=== PATIENT | female | born 1950 | race Caucasian/White ===

== ENCOUNTER → 2016-09-13 | Outpatient (CLI) | payer MEDICARE, OTHER | LOC: GMAB 10:28 | PROVIDERS: ATTEND Family Medicine | DX: I10 Essential (primary) hypertension (principal); E78.2 Mixed hyperlipidemia ==

== ENCOUNTER → 2017-01-01 | Outpatient (CLI) | payer OTHER ==
--- NOTE | 2017-01-01 15:02 | MRI ---
EXAM DESCRIPTION: Brain w/oContrast CLINICAL HISTORY: DIZZINESS COMPARISON: September 12, 2012 CT head TECHNIQUE: Non contrast MRI of the brain is performed according to our usual protocol including multiplanar multi sequence technique. FINDINGS: MRI the brain demonstrates scattered areas of chronic periventricular and subcortical leukomalacia moderate in severity. There is an old lacunar infarct in the posterior right side of the miki extending down into the brachium pontis on the right with prominent white matter changes on both sides of the miki. There are no areas of acute or subacute ischemia observed. No restricted diffusion is noted. There is no hemorrhage or mass. Flow voids are noted in all major intracranial arteries and dural sinuses. The visualized paranasal sinuses and mastoids are clear. IMPRESSION: 1. Significant small vessel ischemic changes adjacent to the lateral ventricles and in the miki especially on the right side of the miki, no acute process observed. Electronically signed by: Dylan Willis MD 01/01/2017 3:00 PM [facility]
== END | disposition home or self-care (01) ==
LOC: MRI 12:36
PROVIDERS: ATTEND Family Medicine
DX: R42 Dizziness and giddiness (principal)

== ENCOUNTER → 2017-02-06 | Outpatient (CLI) | payer OTHER | END | disposition home or self-care (01) | LOC: GMAB 15:10 | PROVIDERS: ATTEND Family Medicine | DX: R42 Dizziness and giddiness (principal) ==

== ENCOUNTER 2017-02-16 10:31 | Emergency (ER) | payer OTHER ==
[2017-02-16 10:54] VITALS: O2SAT 98
--- NOTE | 2017-02-16 12:05 | RAD ---
EXAM DESCRIPTION: Knee,Right Complete CLINICAL HISTORY: 66 years Female, fall, deformity COMPARISON: None. FINDINGS: There is no evidence of acute fracture or dislocation or destructive bony lesion. The medial tibiofemoral joint space is narrowed. Spurring is noted at the anterior patellar margin. There is diffuse swelling anteriorly and laterally, including prominent oblong soft tissue density at the lateral aspect of the knee, which could represent hematoma, versus other fluid collection or soft tissue mass. Difficult to evaluate for effusion on this examination. Vascular calcifications are identified. IMPRESSION: No evidence of acute osseous injury. Degenerative changes. Soft tissue swelling. Presumed hematoma in the lateral soft tissues. Electronically signed by: Duran Jolley 02/16/2017 12:03 PM [facility]
--- NOTE | 2017-02-16 12:09 | RAD ---
EXAM DESCRIPTION: Wrist,Left 3 Views CLINICAL HISTORY: 66 years Female, fall pain and swelling COMPARISON: None. FINDINGS: There is no evidence of acute fracture or dislocation or destructive bony lesion. Slight hypertrophic bony change is noted in the distal radius. Joint spaces appear fairly well preserved as visualized except for apparent slight narrowing between the scaphoid and the trapezium. Soft tissues appear grossly unremarkable. IMPRESSION: No evidence of acute osseous injury. Electronically signed by: Duran Jolley 02/16/2017 12:08 PM [facility]
--- NOTE | 2017-02-16 12:13 | RAD ---
EXAM DESCRIPTION: Knee,Left Complete CLINICAL HISTORY: 66 years Female, fall pain and swelling COMPARISON: None. FINDINGS: There is no evidence of acute fracture or dislocation or destructive bony lesion. The tibiofemoral joint space appears maintained. There is minimal spurring at the posterior patellar margin. Soft tissue swelling and thickening is noted anteriorly. Joint effusion may be present. There are vascular calcifications. IMPRESSION: No evidence of acute osseous injury. Anterior soft tissue swelling. Possible joint effusion. Electronically signed by: Duran Jolley 02/16/2017 12:12 PM [facility]
--- NOTE | 2017-02-16 12:29 | CT ---
PROCEDURE: Cervical Spine HISTORY: fall Indication: Same as above Comparison: None Technique: CT of the cervical spine was done without intravenous contrast, including axial, sagittal and coronal reconstructions. This exam was performed according to our departmental dose-optimization program, which includes automated exposure control, adjustment of the mA and/or KV according to the patient's size and/or use of iterative reconstruction technique. FINDINGS: There is no CT evidence of acute cervical spinal fractures or dislocations. The craniovertebral junction appears unremarkable. There is also evidence of mild to moderate amount of degenerative change, including osteophyte formation, reduction in the intervertebral disc spaces, endplate degenerative changes and facet arthropathy seen at few levels. There is limited evaluation for acute or chronic intervertebral disc herniations or protrusions given the limitation of lack of intrathecal contrast. The prevertebral and the paravertebral soft tissues appear unremarkable. There is no gross evidence of epidural hematoma or paraspinal soft tissue fluid collections. The remainder of the visualized surrounding subcutaneous soft tissues and muscle structures are grossly unremarkable. The visualized airway appears unremarkable. The visualized lung apices do not show any acute findings . The sagittal reconstructed images demonstrate normal alignment The coronal reconstructed images demonstrate normal alignment. IMPRESSION: Negative for acute cervical spine bony trauma. Electronically signed by: Rancho Rodriguez MD 02/16/2017 12:28 PM [facility] Workstation: [id number]
--- NOTE | 2017-02-16 12:30 | CT ---
PROCEDURE: Head HISTORY: fall Indication: Same as above Comparison: None Technique: CT of the head was done without intravenous contrast was done in the orthogonal planes. This exam was performed according to our departmental dose-optimization program, which includes automated exposure control, adjustment of the mA and/or KV according to the patient's size and/or use of iterative reconstruction technique. FINDINGS: There is no intracranial hemorrhage, midline shift mass effect or acute focal infarct. There is prominence of the sylvian fissures and the cortical sulci reflecting age related volume loss. There is periventricular and deep white matter low attenuation, most likely related to small vessel white matter ischemic disease. Intracranial vascular calcifications are seen. If clinical concern exists regarding an acute ischemic/vascular pathology being responsible for patient's symptomatology, an MRI of the brain is more sensitive than the current study, in ruling out such a possibility. There is good ibrahim/white matter differentiation. The ventricular system is normal. The mastoid air cells are unremarkable . The paranasal sinuses are unremarkable . There is no visualization of acute fractures involving the calvarium or the skull base. IMPRESSION: There is no acute intracranial abnormality. Age related and chronic involutional changes are seen. Electronically signed by: Rancho Rodriguez MD 02/16/2017 12:29 PM [facility] Workstation: [id number]
--- NOTE | 2017-02-16 12:42 | ED.PDOC ---
History of Present Illness - General Chief Complaint: Trauma Stated Complaint: Fell - hit forehead/face and R knee Time Seen by Provider: 02/16/17 10:35 Source: patient Exam Limitations: no limitations - History of Present Illness Initial Comments: The patient is 66-year-old female but tripped and fell today in her own house. She sustained a large bruise surrounding her right knee. She is having some difficulty walking on it and pain. She also caught herself with her left wrist and is having some mild medial left wrist discomfort. No obvious deformity there. She is neurovascularly at her baseline. Additionally she did hit her head and has a small frontal hematoma. She is alert and oriented. No real neck pain but she has some mild discomfort just at the base of her cervical spine laterally to the right. Again she is neurologically intact. No loss of consciousness. No significant laceration. Timing/Duration: 1 hour Severity: moderate Improving Factors: immobilization Worsening Factors: movement Associated Symptoms: denies symptoms Allergies/Adverse Reactions: Allergies NO KNOWN ALLERGY Allergy (Verified 02/16/17 10:48) Home Medications: Ambulatory Orders Atorvastatin Calcium [Lipitor] 20 mg PO BEDTIME 06/20/15 Buspirone HCl 15 mg PO BID 06/20/15 Citracal + D3 Maximum 315-250 mg-Unit 1 dose PO DAILY 06/20/15 Clopidogrel Bisulfate [Plavix] 75 mg PO DAILY 06/20/15 Cyanocobalamin Inj [Vitamin B-12 Inj] 1,000 mcg IM MONTHLY 06/20/15 Duloxetine HCl [Cymbalta] 60 mg PO BID 06/20/15 Empagliflozin-Linagliptin [Glyxambi 10-5 mg] 1 tab PO DAILY 06/20/15 Fosinopril Sodium 40 mg PO DAILY 06/20/15 Furosemide 40 mg PO DAILY 06/20/15 Gabapentin 300 mg PO TID 06/20/15 HYDROcodone 7.5MG/APAP 325MG [[place] 7.5/325] 1 ea PO QID 06/20/15 Insulin 70/30 40 units SC DAILY 06/20/15 Insulin Detemir [Levemir] 0 unit SUBCU DAILY 06/20/15 Nitroglycerin [Nitrostat] 0.4 mg SL PRN PRN 06/20/15 Potassium Chloride [Potassium Chloride ER] 10 meq PO DAILY 04/25/16 Vwrumnmapyfun-Sghf-Jjlnbvuili [Fioricet] 1 ea PO Q8H PRN #21 tab 02/16/17 Review of Systems - Review of Systems Constitutional: States: no symptoms reported EENTM: States: no symptoms reported Respiratory: States: no symptoms reported Cardiology: States: no symptoms reported Gastrointestinal/Abdominal: States: no symptoms reported Genitourinary: States: no symptoms reported Musculoskeletal: States: see HPI Skin: States: see HPI Neurological: States: headache - mild Endocrine: States: no symptoms reported All other Systems: No Change from Baseline Past Medical History (General) - Patient Medical History Hx Stroke: Yes - x 2 Hx Cardiac Disorders: Yes - s/p stent Hx Hypertension: Yes Hx Diabetes: Yes Hx Gastroesophageal Reflux: Yes Hx MRSA: Yes - Leg 2007; Nose 2010 MRSA Source:: Wound - Vaccination History Hx Influenza Vaccination: No Hx Pneumococcal Vaccination: Yes - 2015 - Social History Hx Tobacco Use: No Family Medical History - Family History Mother Family History: No Known Living Status: Physical Exam - Physical Exam General Appearance: Alert, Comfortable, No apparent distress Eye Exam: bilateral normal Ears, Nose, Throat: hearing grossly normal, normal ENT inspection, normal pharynx Neck: full range of motion, supple, other - the mild discomfort palpation at the base of the neck on the right. No obvious deformity. There is some muscle spasm. No step-offs. Full range of motion of the cervical spine is preserved. Respiratory: lungs clear, normal breath sounds, no respiratory distress, no accessory muscle use Cardiovascular/Chest: normal peripheral pulses, no edema, other - egular rate Peripheral Pulses: radial,right: 2+, radial,left: 2+, dorsalis pedis,right: 2+, dorsalis pedis,left: 2+ Gastrointestinal/Abdominal: non tender, soft Rectal Exam: deferred Back Exam: no CVA tenderness, no vertebral tenderness Extremity: no pedal edema, normal capillary refill, other - significant swelling of the right knee with associated bruising and a mild abrasion are noted. Range of motion is limited due to pain. She does appear to be neurovascularly intact. Areas history of present illness for the details. Neurologic: folding machine tender II-XII nml as tested, no motor/sensory deficits, alert, normal mood/affect, oriented x 3 Skin Exam: normal color - ith the exception of the abrasion in the mild bruising. She also has a mild bruise to her right forehead. Comments: Vital Signs - 24 hr 02/16/17 10:48 Temperature 98.8 F Pulse Rate [ 66 Left Radial] Respiratory 18 Rate Blood Pressure 182/62 [Left Arm] O2 Sat by Pulse 98 Oximetry Progress - Progress Progress: 02/16/17 12:45 the patient's 66-year-old female presenting to the emergency room after a fall at home. She has sustained a significant hematoma surrounding her right knee. No evidence of fracture was found in her knees or the left wrist on xray. CT scan of the head and cervical spine are also reassuring. The patient is going to be placed in a knee immobilizer for a couple of weeks. She will need to be reevaluated once the swelling has gone down on her knee to see if she has significant ligamentous damage there. She obviously needs to ambulate carefully to prevent further falls. ER warnings were given for any significant worsening. She'll be written for Fioricet for as needed use for pain control. In a couple of days she can start taking Motrin as well for pain control. - Results/Orders Results/Orders: x-ray of the right and left knee show no evidence of any fracture or dislocation. She does have degenerative joint changes. X-ray of the left wrist shows no evidence of any fracture or dislocation. CT scan of the cervical spine shows no evidence of any acute pathology. She does have chronic degenerative changes. CT scan of the head showed no evidence of intracranial hemorrhage. No skull fracture. No hydrocephalus. No mass effect. Departure - Departure Clinical Impression: Fall at home Qualifiers: Encounter type: initial encounter Qualified Code(s): W19.XXXA - Unspecified fall, initial encounter; Y92.099 - Unspecified place in other non-institutional residence as the place of occurrence of the external cause Knee sprain Qualifiers: Encounter type: initial encounter Involved ligament of knee: unspecified ligament Laterality: right Qualified Code(s): S83.91XA - Sprain of unspecified site of right knee, initial encounter Disposition: Discharge to Home or Self Care Condition: Fair Departure Forms: ED Discharge - Pt. Copy, Patient Portal Self Enrollment Diet: regular diet Activity: no pushing/pulling with affected limb Referrals: Quintin Burris MD [Primary Care Provider] - 1-2 Weeks Prescriptions: Yefnibzrecukh-Lccm-Ityyybtrew [Fioricet] 1 ea PO Q8H PRN #21 tab PRN Reason: Pain Home Medications: Ambulatory Orders Atorvastatin Calcium [Lipitor] 20 mg PO BEDTIME 06/20/15 Buspirone HCl 15 mg PO BID 06/20/15 Citracal + D3 Maximum 315-250 mg-Unit 1 dose PO DAILY 06/20/15 Clopidogrel Bisulfate [Plavix] 75 mg PO DAILY 06/20/15 Cyanocobalamin Inj [Vitamin B-12 Inj] 1,000 mcg IM MONTHLY 06/20/15 Duloxetine HCl [Cymbalta] 60 mg PO BID 06/20/15 Empagliflozin-Linagliptin [Glyxambi 10-5 mg] 1 tab PO DAILY 06/20/15 Fosinopril Sodium 40 mg PO DAILY 06/20/15 Furosemide 40 mg PO DAILY 06/20/15 Gabapentin 300 mg PO TID 06/20/15 HYDROcodone 7.5MG/APAP 325MG [[place] 7.5/325] 1 ea PO QID 06/20/15 Insulin 70/30 40 units SC DAILY 06/20/15 Insulin Detemir [Levemir] 0 unit SUBCU DAILY 06/20/15 Nitroglycerin [Nitrostat] 0.4 mg SL PRN PRN 06/20/15 Potassium Chloride [Potassium Chloride ER] 10 meq PO DAILY 06/20/15 Gqqjbvqoxijpr-Gzmv-Modpdlcawb [Fioricet] 1 ea PO Q8H PRN #21 tab 02/16/17 Additional Instructions: the patient's 66-year-old female presenting to the emergency room after a fall at home. She has sustained a significant hematoma surrounding her right knee. No evidence of fracture was found in her knees or the left wrist on xray. CT scan of the head and cervical spine are also reassuring. The patient is going to be placed in a knee immobilizer for a couple of weeks. She will need to be reevaluated once the swelling has gone down on her knee to see if she has significant ligamentous damage there. She obviously needs to ambulate carefully to prevent further falls. ER warnings were given for any significant worsening. She'll be written for Fioricet for as needed use for pain control. In a couple of days she can start taking Motrin as well for pain control.
[2017-02-17 19:02] VITALS: BP 178/82; TEMP 98
== END 2017-02-16 12:50 | disposition home or self-care (01) ==
LOC: ER 10:31
DX: S83.91XA Sprain of unspecified site of right knee, initial encounter (principal); S80.811A Abrasion, right lower leg, initial encounter; S00.93XA Contusion of unspecified part of head, initial encounter; M54.2 Cervicalgia; M25.532 Pain in left wrist; E11.9 Type 2 diabetes mellitus without complications; I10 Essential (primary) hypertension; K21.9 Gastro-esophageal reflux disease without esophagitis; Z79.4 Long term (current) use of insulin; Z79.899 Other long term (current) drug therapy; W01.0XXA Fall on same level from slipping, tripping and stumbling without subsequent striking against object, initial encounter; Y92.009 Unspecified place in unspecified non-institutional (private) residence as the place of occurrence of the external cause

== ENCOUNTER 2017-03-08 10:48 | Emergency (ER) | payer OTHER ==
[2017-03-08 11:05] VITALS: TEMP 97.7
[2017-03-08] MEDS ORDERED: SODIUM CHLORIDE 0.9% 100ML 100 ML IVPB ONE (11:22)
[2017-03-08] MEDS ORDERED: diltiaZEM DRIP 125 MG/25 ML VIAL IVPB ONE (11:22)
--- NOTE | 2017-03-08 11:31 | RAD ---
EXAM DESCRIPTION: Chest,1 View CLINICAL HISTORY: chest pain COMPARISON: June 20, 2015 IMPRESSION: Single AP portable upright view of the chest shows cardiac silhouette and pulmonary vasculature to be within normal limits. Lungs are normally aerated and clear. No obvious pleural effusion or pneumothorax is seen. Moderate disc degenerative changes of the spine are seen. Electronically signed by: Darvin Bajwa MD 03/08/2017 11:30 AM [facility]
[2017-03-08] MEDS: diltiaZEM DRIP 125 MG in SODIUM CHLORIDE 0.9% 100ML 100 ML IVPB SCH (11:33)
--- NOTE | 2017-03-08 12:48 | ED.PDOC ---
History of Present Illness - General Chief Complaint: Cardiovascular Problem Stated Complaint: new onset atrial fib Time Seen by Provider: 03/08/17 11:11 Source: patient Exam Limitations: no limitations - History of Present Illness Initial Comments: THIS PATIENT IS SEEN AT HER PCP OFFICE FOR A ROUTINE VISIT AND WAS FOUND TO BE IN ATRIAL FIBRILLATION WITH RVR, EVIDENTLY NEW ONSET. SHE DENIES ANY CHEST PAIN BUT HAS A HX OF KNOWN CAD, PAD AND HTN. Timing/Duration: 1 week Severity/Quality: mild Prior Chest Pain/Cardiac Workup: angina, cardiac cath Improving Factors: nothing Worsening Factors: nothing Associated Symptoms: denies symptoms Allergies/Adverse Reactions: Allergies NO KNOWN ALLERGY Allergy (Verified 02/16/17 10:48) Home Medications: Ambulatory Orders Atorvastatin Calcium [Lipitor] 20 mg PO BEDTIME 06/20/15 Buspirone HCl 15 mg PO BID 06/20/15 Citracal + D3 Maximum 315-250 mg-Unit 1 dose PO DAILY 06/20/15 Clopidogrel Bisulfate [Plavix] 75 mg PO DAILY 06/20/15 Cyanocobalamin Inj [Vitamin B-12 Inj] 1,000 mcg IM MONTHLY 06/20/15 Duloxetine HCl [Cymbalta] 60 mg PO BID 06/20/15 Empagliflozin-Linagliptin [Glyxambi 10-5 mg] 1 tab PO DAILY 06/20/15 Fosinopril Sodium 40 mg PO DAILY 06/20/15 Furosemide 40 mg PO DAILY 06/20/15 Gabapentin 300 mg PO TID 06/20/15 HYDROcodone 7.5MG/APAP 325MG [[place] 7.5/325] 1 ea PO QID 06/20/15 Insulin 70/30 40 units SC DAILY 06/20/15 Insulin Detemir [Levemir] 0 unit SUBCU DAILY 06/20/15 Nitroglycerin [Nitrostat] 0.4 mg SL PRN PRN 06/20/15 Potassium Chloride [Potassium Chloride ER] 10 meq PO DAILY 06/20/15 Rpyqmjanadxev-Tvyx-Ybycwjxavk [Fioricet] 1 ea PO Q8H PRN #21 tab 02/16/17 Review of Systems - Review of Systems Constitutional: States: no symptoms reported EENTM: States: no symptoms reported Respiratory: States: no symptoms reported Cardiology: States: no symptoms reported Gastrointestinal/Abdominal: States: no symptoms reported Genitourinary: States: no symptoms reported Musculoskeletal: States: no symptoms reported Skin: States: no symptoms reported Neurological: States: no symptoms reported Endocrine: States: no symptoms reported Hematologic/Lymphatic: States: no symptoms reported Past Medical History (General) - Patient Medical History Hx Stroke: Yes - x 2 Hx Cardiac Disorders: Yes - s/p stent Hx Congestive Heart Failure: No Hx Hypertension: Yes Hx Diabetes: Yes Hx Gastroesophageal Reflux: Yes Hx MRSA: Yes - Leg 2007; Nose 2010 MRSA Source:: Wound Surgical History: appendectomy, cholecystectomy, Hysterectomy - Vaccination History Hx Influenza Vaccination: No Hx Pneumococcal Vaccination: Yes - Social History Hx Tobacco Use: No Family Medical History - Family History Mother Family History: No Known Living Status: Physical Exam - Physical Exam General Appearance: Alert, Anxious, No apparent distress Eyes, Ears, Nose, Throat Exam: PERRL/EOMI, normal ENT inspection Neck: non-tender, full range of motion, supple, normal inspection Respiratory: chest non-tender, lungs clear, normal breath sounds, no respiratory distress, no accessory muscle use Cardiovascular/Chest: normal peripheral pulses, tachycardia, irregularly irregular Peripheral Pulses: radial,right: 2+, radial,left: 2+ Gastrointestinal/Abdominal: normal bowel sounds, non tender, soft, no organomegaly, no pulsatile mass Rectal Exam: deferred Extremity: normal range of motion, non-tender, normal inspection, no pedal edema Neurologic: alert, normal mood/affect, oriented x 3 Skin Exam: normal color Lymphatic: no adenopathy Progress - Progress Progress: 03/08/17 14:02 RESPONDED WELL TO CARDIZEM. THE PATIENT WANTS TO STAY IN [place]. I HAVE CONSULTED WITH DR. LEVIN AND HE HAS VISTED WITH THE PATIENT. THERE ARE NO BEDS IN THE HOSPITAL. WILL ATTEMPT TO DISCHARGE HOME. 03/08/17 14:04 EKG: HR OF 157, QRS OF 128, QTC OF 488 AND AXIS OF 74 DEGREES. THE TRACING IS COMPARED TO ONE FROM THE CLINIC DONE EARLIER TODAY. WHEN COMPARED THE TRACING WAS ON AF WITH RVR ATR A RATE OF 128, NO SIGNIFICANT CHANGES NOTED. - Results/Orders Results/Orders: she has been consulted by dr. levin and will be discharged home. PRESCRIPTIONS FOR ELIQUIS AND METOPROLOL HAVE E PRESCRIBED TO [facility]. SHE SHOULD PICK THEM UP AND START WITH THOSE MEDS. Departure - Departure Clinical Impression: Atrial fibrillation with RVR CAD (coronary artery disease) Qualifiers: Coronary Disease-Associated Artery/Lesion type: [place] artery [place] vs. transplanted heart: [place] heart Associated angina: with stable angina Qualified Code(s): I25.118 - Atherosclerotic heart disease of [place] coronary artery with other forms of angina pectoris Time of Disposition: 16:16 Disposition: Discharge to Home or Self Care Condition: Fair Departure Forms: ED Discharge - Pt. Copy, Patient Portal Self Enrollment Instructions: DI for Chest Pain Diet: resume usual diet Activity: increase activity as tolerated Referrals: Quintin Burris MD [Primary Care Provider] - 1-2 Weeks Home Medications: Ambulatory Orders Atorvastatin Calcium [Lipitor] 20 mg PO BEDTIME 06/20/15 Buspirone HCl 15 mg PO BID 06/20/15 Citracal + D3 Maximum 315-250 mg-Unit 1 dose PO DAILY 06/20/15 Clopidogrel Bisulfate [Plavix] 75 mg PO DAILY 06/20/15 Cyanocobalamin Inj [Vitamin B-12 Inj] 1,000 mcg IM MONTHLY 06/20/15 Duloxetine HCl [Cymbalta] 60 mg PO BID 06/20/15 Empagliflozin-Linagliptin [Glyxambi 10-5 mg] 1 tab PO DAILY 06/20/15 Fosinopril Sodium 40 mg PO DAILY 06/20/15 Furosemide 40 mg PO DAILY 06/20/15 Gabapentin 300 mg PO TID 06/20/15 HYDROcodone 7.5MG/APAP 325MG [[place] 7.5/325] 1 ea PO QID 06/20/15 Insulin 70/30 40 units SC DAILY 06/20/15 Insulin Detemir [Levemir] 0 unit SUBCU DAILY 06/20/15 Nitroglycerin [Nitrostat] 0.4 mg SL PRN PRN 06/20/15 Potassium Chloride [Potassium Chloride ER] 10 meq PO DAILY 06/20/15 Btvbyjcalbuta-Bicp-Xvkvbbdmkf [Fioricet] 1 ea PO Q8H PRN #21 tab 02/16/17 Critical Care Note - Critical Care Note Total Time (mins): 35 Comments: CRITICAL CARE: CRITICAL EVENT: PALPITATIONS CRITICAL FINDINGS: NEW ONSET ATRIAL FIB WITH RVR CRITICAL ACTIONS: IV CARDIZEM, CARDIZEM DRIP, IV DIGOXIN, CARDIOLOGY CONSULTATION CRITICAL TIME: 35 MINUTES SYSTEMS AT RISK: CARDIOVASCULAR, NEUROLOGICAL
[2017-03-08] MEDS ORDERED: DIGOXIN INJ 0.5 MG/2 ML AMP IV ONE (13:15)
[2017-03-08] MEDS: DIGOXIN INJ 0.5 MG/2 ML AMP IV ONE (13:29)
[2017-03-08 15:10] VITALS: O2SAT 93
[2017-03-08 16:58] VITALS: BP 177/88
== END 2017-03-08 16:57 | disposition home or self-care (01) ==
LOC: ER 10:48
DX: I48.91 Unspecified atrial fibrillation (principal); I25.118 Atherosclerotic heart disease of native coronary artery with other forms of angina pectoris; I10 Essential (primary) hypertension; E11.9 Type 2 diabetes mellitus without complications; K21.9 Gastro-esophageal reflux disease without esophagitis; Z98.61 Coronary angioplasty status; Z79.4 Long term (current) use of insulin; Z79.02 Long term (current) use of antithrombotics/antiplatelets
CPT/HCPCS: 36415; 71045; 80053; 83880; 84484; 85025; 93005; J1160; J7050

== ENCOUNTER → 2017-05-29 | Outpatient (CLI) | payer OTHER ==
--- NOTE | 2017-05-29 16:38 | MRI ---
MRI pelvis without contrast INDICATION: Chronic pain syndrome TECHNIQUE: Noncontrast MR imaging pelvis FINDINGS: Degenerative scoliosis of the lumbar spine partially imaged. Advanced degenerative disc disease asymmetric left-sided L4-5 with marginal osteophytes and vacuum phenomenon within the disc. Prominent degenerative facet disease lower lumbar region and active endplate edema at L4-5 most likely degenerative/mechanical There is an interstitial partial tear involving the gluteus minimus tendon with right hip with background tendinosis. No complete detachment or retraction. Gluteus medius tendon is intact other than mild tendinosis. There is degenerative hypertrophy of the superior lateral acetabulum right hip. Mild background osteoarthrosis. This hypertrophy may produce pincer-type impingement of the hip. No osteonecrosis or fracture. There is artifact along the proximal attachment of the right hamstring tendons. There is tendinosis and mild adjacent edema. No rupture. No pronounced narrowing of the ischiofemoral interval right hip. Minimal right greater trochanteric bursitis. 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 Mild right greater trochanteric bursal edema Degenerative scoliosis lumbar spine with degenerative disc disease and prominent facet arthrosis most severe at L4-5 Electronically signed by: Florentin Lynn MD 05/29/2017 4:37 PM CDT
== END | disposition home or self-care (01) ==
LOC: MRI 14:36
PROVIDERS: ATTEND Orthopaedic Surgery
DX: M25.851 Other specified joint disorders, right hip (principal); S73.191A Other sprain of right hip, initial encounter; X58.XXXA Exposure to other specified factors, initial encounter; Y93.9 Activity, unspecified

== ENCOUNTER → 2017-06-25 | Outpatient (CLI) | payer OTHER ==
--- NOTE | 2017-06-27 09:26 | MAM ---
EXAM DESCRIPTION: 3D Screening BILATERAL : Digital Mammography. CLINICAL HISTORY: 66 years Female SCREENING . No complaints. No family history breast cancer. Hysterectomy. No HRT. Cyst aspiration and benign right breast biopsy. COMPARISON: 2-D digital screening bilateral study 04/23/2012.. No prior reports available. TECHNIQUE: Bilateral CC and MLO projection full-field images, 3-D tomosynthesis digital mammographic technique. Also bilateral synthesized CC/ MLO full-field images. CAD not utilized. FINDINGS: The breast parenchymal density pattern is: Scattered areas of fibroglandular density. No skin thickening or nipple retraction bilateral solitary microcalcifications. Bilateral axillary lymph nodes. More diffuse calcifications in the left breast. No focal, stellate mass or density, focal asymmetry , and no suspicious microcalcifications bilaterally. Stable mammograms compared to prior study, taking into account differences in mammographic technique IMPRESSION: BI-RADS CATEGORY: 2 - BENIGN FINDINGS. FOLLOW UP: Routine digital bilateral screening, one year interval from June 2017. Written communication explaining the IMPRESSION and follow-up, will be mailed to the patient and referring health care provider. According to the [employer], yearly mammograms are recommended starting at age 40 and continuing as long as a woman is in good health. Any breast change noted on a breast self-exam should be reported promptly to the patient's healthcare provider. Breast MRI is recommended for women with an approximately 20-25% or greater lifetime risk of breast cancer, including women with a strong family history of breast or ovarian cancer and women who have been treated for Hodgkin's disease. A negative mammographic report should not delay tissue diagnosis in patients with significant clinical history or physical findings. Extremely dense breast tissue limits the sensitivity of digital mammography. Electronically signed by: Niels Nicolas MD 06/27/2017 9:24 AM CDT
== END ==
LOC: MAMMO 13:49
PROVIDERS: ATTEND Family Medicine
DX: Z12.31 Encounter for screening mammogram for malignant neoplasm of breast (principal)

== ENCOUNTER → 2017-12-02 | Outpatient (CLI) | payer OTHER | LOC: GMAE 11:01 | PROVIDERS: ATTEND Family Medicine | DX: D50.8 Other iron deficiency anemias (principal); E53.8 Deficiency of other specified B group vitamins; E11.65 Type 2 diabetes mellitus with hyperglycemia; R94.6 Abnormal results of thyroid function studies; E78.2 Mixed hyperlipidemia; I10 Essential (primary) hypertension ==

== ENCOUNTER → 2017-12-05 | Outpatient (CLI) | payer OTHER ==
--- NOTE | 2017-12-06 05:36 | US ---
THYROID ULTRASOUND CLINICAL INFORMATION: Abnormal thyroid findings TECHNIQUE: Sonographic survey of the thyroid gland was performed and medical field representative images recorded. COMPARISON: None FINDINGS: Thyroid size: Right lobe measures 5.5 x 1.9 x 2.5 cm. Left lobe measures 4.7 x 1.4 x 2.1 cm. Isthmus measures 0.3 cm. Texture: Relatively homogenous. Estimated total number of nodules >/=1 cm: 0 Number of spongiform nodules >/=2 cm not described below (TR1): 0 Number of mixed cystic and solid nodules >/=1.5 cm not described below (TR2): 0 Nodule #: #: 1: Maximum size: 0.8 cm; All dimensions 0.8 x 0.5 x 0.6 cm Location: right; mid Composition: solid/almost completely solid (2) Echogenicity: hypoechoic (2) Shape: not [id number] (0) Margins: smooth (0) Echogenic foci: none (0) ACR TI-RADS total points: 4. ACR TI-RADS risk category: TR4 (4-6 points) ACR TI-RADS recommendation: No further follow-up IMPRESSION: 1. Subcentimeter nodule in the right lobe of the thyroid gland. No further follow-up imaging recommended. ACR TI-RADS recommendations: TR5 (>/=7 points) - FNA if >/=1 cm, follow-up if 0.5 - 0.9 cm every year for 5 years TR4 (4-6 points) - FNA if >/=1.5 cm, follow-up if 1 - 1.4 cm in 1, 2, 3 and 5 years TR3 (3 points) - FNA if >/=2.5 cm, follow -up if 1.5 - 2.4 cm in 1, 3 and 5 years TR2 (2 points) and TR1 (0 points) - No FNA or follow-up * ACR TI-RADS recommends that no more than two nodules with the highest ACR TI-RADS total point should be biopsied and no more than four nodules should be followed. Electronically signed by: Imtiaz Conroy MD 12/06/2017 5:34 AM CDT
== END ==
LOC: US 10:52
PROVIDERS: ATTEND Family Medicine
DX: R94.6 Abnormal results of thyroid function studies (principal); E04.1 Nontoxic single thyroid nodule

== ENCOUNTER → 2018-01-10 | Outpatient (CLI) | payer OTHER ==
--- NOTE | 2018-01-13 07:18 | RAD ---
EXAM DESCRIPTION: Pelvis CLINICAL HISTORY: 67 years Female, HIP PN COMPARISON: None. FINDINGS: Single AP view of the pelvis shows no acute fracture or malalignment. Vascular calcifications are noted. The hip joint spaces are fairly well-maintained with mild degenerative calcifications arising from the acetabular margins bilaterally. Degenerative changes are also noted in the lower lumbar spine. IMPRESSION: Mild degenerative changes in both hips with additional degenerative changes in the lower lumbar spine. No acute hip abnormality. Vascular calcifications. Electronically signed by: Modesto Contreras MD 01/13/2018 7:16 AM [facility]
--- NOTE | 2018-01-13 07:19 | RAD ---
EXAM DESCRIPTION: Hip,Right 2 Views CLINICAL HISTORY: 67 years Female, HIP PN COMPARISON: None. FINDINGS: Two views of the right hip show no acute fracture or malalignment. Degenerative calcifications arise in the posterior margin of the right acetabulum. Mild to these hepatic calcifications arise in the greater trochanter. Vascular calcifications are noted. No evidence of avascular necrosis or other focal bone lesion. There is joint space narrowing with adjacent sclerosis in the right sacroiliac joint, likely degenerative. Additional degenerative changes are present in the lower lumbar spine. IMPRESSION: Mild degenerative changes of the right hip without acute right hip abnormality. Additional degenerative changes in the lower lumbar spine and right sacroiliac joint. Atherosclerotic vascular disease. Electronically signed by: Modesto Contreras MD 01/13/2018 7:18 AM [facility]
== END ==
LOC: RAD 01-09 02:45
PROVIDERS: ATTEND Orthopaedic Surgery
DX: M25.551 Pain in right hip (principal); M12.851 Other specific arthropathies, not elsewhere classified, right hip; M12.852 Other specific arthropathies, not elsewhere classified, left hip; M51.36 Other intervertebral disc degeneration, lumbar region; I70.8 Atherosclerosis of other arteries

== ENCOUNTER → 2018-01-20 | Outpatient (CLI) | payer OTHER ==
--- NOTE | 2018-01-20 13:47 | MRI ---
MRI right hip without contrast INDICATION: Hip pain bursitis status post fall one month ago TECHNIQUE: Noncontrast MR imaging right hip FINDINGS: There is trace bilateral greater trochanteric bursal edema. No fracture or osteonecrosis. Degenerative disease L4-5 and L5-S1 incidentally noted. No hamstring avulsion. Mild undersurface degenerative fraying anterior superior labrum right hip. No avulsion of the gluteal tendons. There is ossification which may be connected to the enthesophyte formation at the right greater trochanter coronal series 301 image 8. There is no pronounced edema to suggest an active a avulsion injury. Distally noted small exophytic lesion lower pole right kidney recommend renal ultrasound to determine if this is cystic or solid. This is visualized on the flue gas analyst images. Mild osteoarthrosis of the hips. Mild degenerative change anterior superior labrum right hip. IMPRESSION: Minimal osteoarthrosis of the hips Enthesophytes at both greater trochanters No collette rupture or retraction of the gluteal tendons Small exophytic mass or cyst right kidney recommend ultrasound to further characterize Mild degenerative change of the right acetabular labrum anterior superior No pronounced bursitis Electronically signed by: Florentin Lynn MD 01/20/2018 1:46 PM [facility]
== END ==
LOC: MRI 10:00
PROVIDERS: ATTEND Orthopaedic Surgery
DX: M70.71 Other bursitis of hip, right hip (principal); M16.0 Bilateral primary osteoarthritis of hip; M76.891 Other specified enthesopathies of right lower limb, excluding foot

== ENCOUNTER → 2018-03-04 | Outpatient (CLI) | payer OTHER ==
--- NOTE | 2018-03-04 14:08 | US ---
EXAM DESCRIPTION: Renal sonogram CLINICAL HISTORY: 67 years Female, CYST OF KIDNEY COMPARISON: Previous study January 26, 2014 TECHNIQUE: Retroperitoneal sonogram was performed to evaluate the kidneys and bladder. FINDINGS: Right kidney Right renal length is 10.3 cm. Renal cortical thinning is noted at the upper and lower poles. Hyperechoic lesion at the lower pole of the right kidney measures 2.4 cm and appears similar to previous study, most likely benign incidental angiomyolipoma. A second similar echogenic focus measures 1.5 cm. Lesions were seen in the left kidney at the time the previous study January 26, 2014. Echogenicity of the cortex is less than the adjacent liver, within normal limits. No right renal cyst or shadowing stone. No hydronephrosis. Left kidney Left renal length is 9.6 cm.. Regular renal cortical thinning is seen in the echogenicity of the left kidney is mildly increased. Findings suggest multifocal scarring. Small cyst in the upper left kidney measures 9 mm. No left renal mass or shadowing stone. No hydronephrosis. Urinary bladder No images of the bladder were obtained. IMPRESSION: Bilateral renal cortical thinning, left more than right. Echogenic lesions in the lower right kidney consistent with angiomyolipomas. Electronically signed by: Roberto Mcclelland MD 03/04/2018 11:37 AM [facility]
== END ==
LOC: US 10:35
PROVIDERS: ATTEND Family Medicine
DX: N28.1 Cyst of kidney, acquired (principal); N28.9 Disorder of kidney and ureter, unspecified

== ENCOUNTER 2018-10-28 10:17 | Inpatient (IN) | payer MEDICARE, OTHER ==
--- NOTE | 2018-10-28 10:52 | ED.PDOC ---
History of Present Illness - General Chief Complaint: Cardiovascular Problem Time Seen by Provider: 10/28/18 10:21 Source: patient, RN/MD Exam Limitations: no limitations - History of Present Illness Initial Comments: Patient is a 67 yo F presenting with complaints of SOB since 0300 today. She states that she was sleeping and woke up short of breath. She denies any chest pain, nausea, vomiting or diaphoresis with these symptoms. She denies any lower extremity edema or leg pain. She states that she did have a productive cough with white to yellowish sputum. She otherwise denies any recent sick contacts, fevers, chills, or abdominal pain. She has no recent travel, recent surgeries, hemoptysis, hx of hormone replacement. She denies any palpitations. She denies taking her medications this AM. She states that she went to see her PCP, who sent her in for further evaluation due to hypoxia (normally on room air) and tachycardia. Timing/Duration: this morning, getting worse Severity: severe Possible Cause: no prior episodes Improving Factors: nothing Worsening Factors: nothing Associated Symptoms: cough Respiratory Risk Factors: no cause identified Allergies/Adverse Reactions: Allergies NO KNOWN ALLERGY Allergy (Verified 02/16/17 10:48) Home Medications: Ambulatory Orders Atorvastatin Calcium [Lipitor] 20 mg PO BEDTIME 06/20/15 Citracal + D3 Maximum 315-250 mg-Unit 1 dose PO DAILY 06/20/15 Clopidogrel Bisulfate [Plavix] 75 mg PO DAILY 06/20/15 Cyanocobalamin Inj [Vitamin B-12 Inj] 1,000 mcg IM MONTHLY 06/20/15 Duloxetine HCl [Cymbalta] 60 mg PO BID 06/20/15 Empagliflozin-Linagliptin [Glyxambi 10-5 mg] 1 tab PO DAILY 06/20/15 HYDROcodone 7.5MG/APAP 325MG [[place] 7.5/325] 1 ea PO QID 06/20/15 Insulin 70/30 40 units SC DAILY 06/20/15 Insulin Detemir [Levemir] 0 unit SUBCU DAILY 06/20/15 Nitroglycerin [Nitrostat] 0.4 mg SL PRN PRN 06/20/15 Potassium Chloride [Potassium Chloride ER] 10 meq PO DAILY 06/20/15 RX: Buspirone HCl 15 mg PO BID 06/20/15 RX: Fosinopril Sodium 40 mg PO DAILY 06/20/15 RX: Furosemide 40 mg PO DAILY 06/20/15 RX: Gabapentin 300 mg PO TID 06/20/15 Mlinmhvukdtvs-Vqjy-Yqmrxbxgyq [Fioricet] 1 ea PO Q8H PRN #21 tab 02/16/17 Review of Systems - Review of Systems Constitutional: States: see HPI EENTM: States: no symptoms reported Respiratory: States: cough, short of breath Cardiology: States: no symptoms reported Gastrointestinal/Abdominal: States: no symptoms reported Neurological: States: no symptoms reported Past Medical History (General) - Patient Medical History Hx Stroke: Yes - x 2 Hx Cardiac Disorders: Yes - s/p stent Hx Congestive Heart Failure: No Hx Hypertension: Yes Hx Diabetes: Yes Hx Gastroesophageal Reflux: Yes Hx MRSA: Yes - Leg 2007; Nose 2010 MRSA Source:: Wound - Vaccination History Hx Influenza Vaccination: No Hx Pneumococcal Vaccination: Yes - Social History Hx Tobacco Use: No Family Medical History - Family History Mother Family History: No Known Living Status: Physical Exam - Physical Exam General Appearance: Alert, Ill Appearing ENT Exam: hearing grossly normal Neck: supple, normal inspection, trachea midline Respiratory: crackles Cardiovascular/Chest: no JVD, tachycardia, irregularly irregular Gastrointestinal/Abdominal: non tender, soft Extremity: normal range of motion, no pedal edema Skin Exam: normal color Progress - Progress Progress: DDx: Atrial fibrillation w/RVR, ACS, CHF Exacerbation, Acute Respiratory failure, Pneumonia, Sepsis, pulmonary embolus, pulmonary edema 10/28/18 10:54 Patient evaluated and labs ordered. Will plan to rate control with cardizem bolus and gtt. Imaging pending. 10/28/18 11:17 Patient updated on CXR and results of BNP. She was given total of 25mg Cardizem bolus (15mg followed by 10mg) with improvement in her heart rate. She is breathing much more comfortably now. She will be given 40mg Lasix IV. Pending TRP at this time. 10/28/18 11:37 Patient discussed with admitting service. Okay with Cardizem gtt. Will plan for admission and echo. Patient updated on plan. Patient states that her breathing is okay at this time. Heart rate ranging in low 100's to 115. Patient will be admitted for Atrial fibrillation with RVR and Acute CHF Exacerbation. 10/28/18 11:54 patient presented for evaluation of shortness of breath. She was found to be in atrial fibrillation with RVR. EKG was not significant for underlying ischemic changes. Troponin was also found to be negative. The fact that her dyspnea began around 3AM, I would expect the troponin being elevated if this was secondary to acute coronary syndrome. Her symptoms were unlikely secondary to underlying pulmonary embolus. She has no risk factors.chest x-ray was significant for pulmonary edema which she was given 40 mg of IV Lasix. She has not taken her Lasix in quite some time. CBC was not significant for anemia. Metabolic panel was significant for prerenal azotemia which she was not given IV fluids given her pulmonary edema. BNP was elevated in the low 200s. Her respiratory status did improve while in the ER after rate control. Her heart rate did improve with IV Cardizem. Patient was discussed with the admitting service, who agreed for plan for admission. They agreed to start Cardizem GTT. Patient was comfortable with plan for admission. Face mask ventilation was not started as her respiratory status did improve with nasal cannula oxygen administration. Repeat EKG after her heart rate was better controlled did not show any ischemic changes. - Results/Orders Results/Orders: 10/28/18 10:30 EKG STAT 10/28/18 11:00 diltiaZEM DRIP [Cardizem Drip] 125 mg Sodium Chloride 0.9% 100Ml [NS (NACL 0.9%) 100ml] 100 ml IVPB PRN 10/28/18 11:30 EKG STAT 10/28/18 11:43 ED Intent to Admit Routine Laboratory Results WBC 9.3 K/mm3 (4.8-10.8) 10/28/18 10:34 RBC 4.39 M/mm3 (4.20-5.40) 10/28/18 10:34 Hgb 12.0 gm/dL (12.0-16.0) 10/28/18 10:34 Hct 37.0 % (36.0-47.0) 10/28/18 10:34 MCV 84.4 fl (81.0-99.0) 10/28/18 10:34 MCH 27.4 pg (27.0-31.0) 10/28/18 10:34 MCHC 32.5 g/dL (33.0-37.0) L 10/28/18 10:34 RDW 14.8 % (11.5-14.5) H 10/28/18 10:34 Plt Count 264 K/mm3 (130-400) 10/28/18 10:34 MPV 8.0 fl (7.40-10.4) 10/28/18 10:34 Absolute Neuts (auto) 6.80 K/uL (1.8-6.8) 10/28/18 10:34 Absolute Lymphs (auto) 1.50 K/uL (1.0-3.4) 10/28/18 10:34 Absolute Monos (auto) 0.70 K/uL (0.2-0.8) 10/28/18 10:34 Absolute Eos (auto) 0.20 K/uL (0.0-0.4) 10/28/18 10:34 Absolute Basos (auto) 0.10 K/uL (0.0-0.1) 10/28/18 10:34 Neutrophils % 73.5 % (42.0-78.0) 10/28/18 10:34 Lymphocytes % 16.5 % (20.0-50.0) L 10/28/18 10:34 Monocytes % 7.2 % (2.0-9.0) 10/28/18 10:34 Eosinophils % 2.0 % (1.0-5.0) 10/28/18 10:34 Basophils % 0.8 % (0.0-2.0) 10/28/18 10:34 Sodium 139 mmol/L (135-145) 10/28/18 10:34 Potassium 4.8 mmol/L (3.6-5.0) 10/28/18 10:34 Chloride 105 mmol/L (101-111) 10/28/18 10:34 Carbon Dioxide 24 mmol/L (21-31) 10/28/18 10:34 Anion Gap 14.8 (12-18) 10/28/18 10:34 BUN 28 mg/dL (7-18) H 10/28/18 10:34 Creatinine 1.02 mg/dL (0.6-1.3) 10/28/18 10:34 BUN/Creatinine Ratio 27.5 (10-20) H 10/28/18 10:34 Random Glucose 147 mg/dL (70-105) H 10/28/18 10:34 Serum Osmolality 285.7 mOsm/L (275-295) 10/28/18 10:34 Calcium 9.6 mg/dL (8.4-10.2) 10/28/18 10:34 Magnesium 1.8 mg/dL (1.8-2.5) 10/28/18 10:34 Total Bilirubin 1.0 mg/dL (0.2-1.0) 10/28/18 10:34 AST 20 IU/L (10-42) 10/28/18 10:34 ALT 20 IU/L (10-60) 10/28/18 10:34 Alkaline Phosphatase 71 IU/L (42-121) 10/28/18 10:34 Troponin I 0.02 ng/mL (0.01-0.05) 10/28/18 10:34 B-Natriuretic Peptide 230.0 pg/ml (0-100) H* 10/28/18 10:34 Serum Total Protein 7.6 gm/dL (6.4-8.2) 10/28/18 10:34 Albumin 3.9 g/dl (3.2-5.5) 10/28/18 10:34 Globulin 3.7 gm/dL (2.3-3.5) H 10/28/18 10:34 Albumin/Globulin Ratio 1.1 (1.1-1.9) 10/28/18 10:34 TSH 0.35 uIU/mL (0.34-5.60) 10/28/18 10:34 CXR: Bilateral pulmonary edema with questionable pleural effusion - EKG/XRAY/CT EKG: Atrial, Fibrillation, RVR, RBBB, no ST T wave changes - Additional EKG/XRAY/Consults EKG #2: Atrial, Fibrillation, RBBB, no ST T wave changes Departure - Departure Clinical Impression: Atrial fibrillation with RVR Acute CHF (congestive heart failure) Qualifiers: Heart failure type: unspecified Qualified Code(s): I50.9 - Heart failure, unspecified Disposition: Admit Patient Departure Forms: ED Discharge - Pt. Copy, Patient Portal Self Enrollment Instructions: DI for Chest Pain Referrals: GURVINDER SINGH MD [Primary Care Provider] - 1-2 Weeks Home Medications: Ambulatory Orders Atorvastatin Calcium [Lipitor] 20 mg PO BEDTIME 06/20/15 Citracal + D3 Maximum 315-250 mg-Unit 1 dose PO DAILY 06/20/15 Clopidogrel Bisulfate [Plavix] 75 mg PO DAILY 06/20/15 Cyanocobalamin Inj [Vitamin B-12 Inj] 1,000 mcg IM MONTHLY 06/20/15 Duloxetine HCl [Cymbalta] 60 mg PO BID 06/20/15 Empagliflozin-Linagliptin [Glyxambi 10-5 mg] 1 tab PO DAILY 06/20/15 HYDROcodone 7.5MG/APAP 325MG [[place] 7.5/325] 1 ea PO QID 06/20/15 Insulin 70/30 40 units SC DAILY 06/20/15 Insulin Detemir [Levemir] 0 unit SUBCU DAILY 06/20/15 Nitroglycerin [Nitrostat] 0.4 mg SL PRN PRN 06/20/15 Potassium Chloride [Potassium Chloride ER] 10 meq PO DAILY 06/20/15 RX: Buspirone HCl 15 mg PO BID 06/20/15 RX: Fosinopril Sodium 40 mg PO DAILY 06/20/15 RX: Furosemide 40 mg PO DAILY 06/20/15 RX: Gabapentin 300 mg PO TID 06/20/15 Wsukjfobwcqya-Wwdj-Wguhbutqkl [Fioricet] 1 ea PO Q8H PRN #21 tab 02/16/17 Decision To Admit - Decistion To Admit Decision to Admit Reason: Admit from ER - Atrial fib RVR and CHF Exacerbation Decision to Admit Date: 10/28/18 Decision to Admit Time: 11:38
[2018-10-28] MEDS ORDERED: SODIUM CHLORIDE 0.9% 100ML 100 ML IVPB ONE (11:01)
[2018-10-28] MEDS ORDERED: diltiaZEM DRIP 125 MG/25 ML VIAL IVPB ONE (11:01)
--- NOTE | 2018-10-28 11:06 | RAD ---
EXAM DESCRIPTION: Chest,1 View CLINICAL HISTORY: 67 years Female, SOB, Hypoxia COMPARISON: Chest radiograph 03/08/2017 TECHNIQUE: Single frontal view of the chest. IMPRESSION: Stably enlarged cardiac silhouette. Perihilar prominence and bibasilar opacities which may represent vascular congestion and pulmonary edema. Underlying pneumonia or aspiration not excluded. Probable small right greater left pleural effusions. There is fluid within the right minor fissure. No pneumothorax. Thoracic spondylosis. Electronically signed by: Arya Elizalde MD 10/28/2018 11:03 AM CDT
[2018-10-28] MEDS ORDERED: FUROSEMIDE INJ 40 MG/4 ML VIAL IV ONE (11:12)
[2018-10-28] MEDS: diltiaZEM DRIP 125 MG in SODIUM CHLORIDE 0.9% 100ML 100 ML IVPB SCH (11:40)
--- NOTE | 2018-10-28 11:56 | HP ---
SUPERVISING PHYSICIAN: Christian Germain M.D. CHIEF COMPLAINT: Palpitations and shortness of breath. HISTORY OF PRESENT ILLNESS: Ms. Mills is a 67 year-old female patient who has a history of paroxysmal atrial fibrillation and has been on Eliquis. She presented to the E. R. today after she developed a sudden onset of shortness of breath around 3:00 this morning. She noted that she was sleeping and awoke with shortness of breath but denies any actual chest pains, nausea, vomiting or diaphoresis, but was having some palpitations. She has been on Eliquis for anticoagulation due to her atrial fibrillation but has been off of it for 2 weeks due to inability to obtain the medication. She was denying any lower extremity edema or pain. She was noting that she did have a mildly productive cough but was more white to yellow sputum. She has not had any recent illnesses or been around any ill contacts. She has not taken her medications this morning prior to the E. R. visit. She went to the clinic as soon as they opened to see Dr. Germain but on further evaluation found that the patient was hypoxic and tachycardia, and then was referred for further treatment and evaluation in the Emergency Department. Initially in the Emergency Department it was noted that she was tachycardic with vital signs showing a heart rate of 139 and EKG revealing atrial fibrillation with rapid ventricular response, satting 88% on room air. Blood pressure was elevated at 156/112. She was afebrile. Initial laboratory studies in the E. R. were fairly unremarkable except for an elevated BNP at 230. TSH was normal at 0.35 as well as magnesium at 1.8. She was given 25 mg of Cardizem which did result in better control of her ventricular rate. Her initial cardiac enzymes were showing to be with troponin 0.02. Given that she continued with a rapid heart rate, she was started on a Cardizem drip and is now going to be admitted to the hospital for further treatment and evaluation of atrial fibrillation with rapid ventricular response and pulmonary edema with concerns for congestive heart failure related to the elevated BNP. She was given 40 of Lasix in addition to the Cardizem. She was admitted in stable condition. PAST MEDICAL HISTORY: 1. Paroxysmal atrial fibrillation followed by Dr. Ruvalcaba supposedly on Eliquis and Metoprolol. 2. Coronary artery disease with previous stent placement. 3. Type 2 diabetes mellitus on both oral and insulin therapy. 4. Gastroesophageal reflux disease. 5. Hypertension. 6. Iron-deficiency anemia. 7. Anxiety. 8. Psoriasis. PAST SURGICAL HISTORY: 1. Appendectomy. 2. Cholecystectomy. 3. Hysterectomy. 4. Coronary artery stent placement. HOME MEDICATIONS: Awaiting updated and verified list, but review of medical records from the clinic show she is on: 1. Glipizide 10 mg b.i.d. 2. Potassium chloride 10 mEq extended release 1 b.i.d. 3. Cymbalta 60 mg b.i.d. 4. Neurontin 600 mg t.i.d. 5. Plavix 75 mg every day. 6. Aspirin 1 daily. 7. Calcium supplement 1 daily. 8. Vitamin B12 injections monthly. 9. Lisinopril 20 mg b.i.d. 10. Buspirone 7.5 mg twice daily. 11. Toujeo 60 units daily. 12. Toprol XL 25 mg tablets extended release 1 daily. ALLERGIES: NO KNOWN DRUG ALLERGIES. FAMILY HISTORY: Father due to suicide. Mother had a history f hypertension, myocardial infarctions and renal failure. SOCIAL HISTORY: The patient is . Lives in [place], [place]. 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 She has never smoked. Does not use tobacco and does not use illicit drugs. REVIEW OF SYSTEMS: CONSTITUTIONAL: Denies any fevers, chills, general malaise. HEENT: Negative for headaches, vision changes, sore throat, ear aches or nasal congestion. RESPIRATORY: Positive for shortness of breath with a nonproductive cough. No wheezing. CARDIOVASCULAR: As noted in history of present illness, palpitations but denies any peripheral edema, syncopal episodes or chest pains. GASTROINTESTINAL: Negative for any nausea, vomiting, diarrhea, constipation or abdominal pains. GENITOURINARY: Denies any dysuria, hematuria or polyuria. NEUROLOGIC: Denies any vision changes, syncopal episodes, ataxia or seizures. PHYSICAL EXAMINATION: VITAL SIGNS: Initially in the E.R. showed a heart rate of 130 with EKG showing atrial fibrillation RVR. temperature 97.8, blood pressure 156/112 with respirations 30, satting 88% on room air. After initial treatment with Cardizem heart rate was at 115, blood pressure 163/89, respirations 94, satting 92% on room air. GENERAL: The patient appears to be a little anxious but not in any obvious acute distress on admission to the Medical/Surgical floor. HEENT: Tympanic membranes were clear bilaterally. Oropharynx was pink and moist without any lesions. NECK: Supple, non-tender. Full range of motion. No jugular venous distention. CHEST: Lung sounds were diminished towards the bases with with just very faint rhonchi heard bilaterally but no rales or wheezing. CARDIOVASCULAR: Irregular rate and rhythm showing atrial fibrillation with a ventricular rate around 114 initially on admission. No appreciable murmurs, gallops, or rubs. ABDOMEN: Obese but soft, non-tender. Positive bowel sounds. EXTREMITIES: Without any clubbing, cyanosis or edema. NEUROLOGIC: Cranial nerves II-XII are grossly intact. Facial features were symmetrical. Extraocular movements are within normal limits. There is no notably nystagmus. She was alert and oriented times three. SKIN: There are notable areas of psoriasis to her knees, otherwise skin was pink, warm and dry. LABORATORY STUDIES: CBC showed a white count of 9,300, hemoglobin 12, hematocrit 37.0, platelet count 264,000. Differential showed to be without a left shift. Coagulation studies after admission to the Medical/Surgical floor showed a PT of 9.7, PTT of 25.9 with a D-dimer that was elevated at 1.50. Chemistry showed normal electrolytes, BUN 28, creatinine 1.02, glucose 129, calcium 9.6, magnesium 1.8. Liver functions were all within normal limits. Initial troponin was 0.02. BNP was elevated at 230 with TSH of 0.35. Urinalysis showed just a normal dipstick with 2+ bacteria, otherwise 3 to 5 epithelials and no other significant findings. RADIOLOGY: Chest x-ray in the E. R. initially, single view chest, per radiology interpretation showed stable enlarged cardiac silhouette with perihilar prominence, bibasilar opacities which may represent vascular congestion or pulmonary edema, however underlying pneumonia or aspiration cannot be excluded. There was note of probable small right greater left pleural effusions. There is fluid within the right minor fissure. No pneumothorax. This was followed-up with a chest thoracic CTA and per radiology interpretation showed no pulmonary embolism but congestive heart failure volume overload and a moderate right and small left pleural effusion with adjacent atelectasis/consolidation. EKG showing 12-lead with rapid ventricular response, rates in the 130s. Echocardiogram completed on admission showing a normal left ventricular function with an ejection fraction of 60 to 65% with some mild left atrial enlargement and mild mitral annular calcification. ASSESSMENT: 1. Atrial fibrillation with rapid ventricular response, unsure etiology but the patient has a history of paroxysmal atrial fibrillation previously on Eliquis and a beta renata with the patient noncompliant with anticoagulation therapy due to inability to obtain medications for 2 weeks. 2. Elevated D-dimer but negative CTA of the chest for pulmonary embolism but with the patient having been noncompliant with her anticoagulation therapy with Eliquis for 2 weeks. 3. Pulmonary edema probably due to acute exacerbation of atrial fibrillation with rapid ventricular response with current echocardiogram showing a normal ventricular function and an ejection fraction of 60 to 65%. 4. History of anxiety on multiple anti-anxiety medications possibly exacerbating #1 due to mild panic attack. 5. Hypertension appears to be stable on beta blockers. 6. Type 2 diabetes mellitus on both oral and insulin therapy. 7. History of coronary atherosclerosis with previous coronary stent placement. 8. Chronic gastroesophageal reflux disease. 9. Iron-deficiency anemia. PLAN: Ms. Mills is going to be admitted for ongoing treatment of her atrial fibrillation with rapid ventricular response and her dyspnea. She was given Lasix and Cardizem in the E. R. On admission I requested she be started on a Cardizem drip. Will utilize p.r.n. boluses to further control her heart rate. Will start her on her beta renata as I believe she has not taken that today and probably need to increase that to 50 daily which will start tomorrow. I have also started her back on her Eliquis at 5 mg b.i.d. Will continue with some gentle diuresis with 20 of Lasix b.i.d. and repeat laboratory studies in the morning. Will review her medications and update those, and restart them as appropriate once those are available. She will be on again DVT prophylaxis with restarting of her Eliquis and SCDs. She will be on continuous cardiac telemetry monitoring. She will be on insulin sliding scale per protocol. Until we can transition her back to outpatient management will continue to monitor and treat as needed. #[id number] [facility]
[2018-10-28] MEDS ORDERED: GLUCAGON INJ 1 MG VIAL SUBCU PRN (12:51)
[2018-10-28] MEDS ORDERED: SODIUM CHLORIDE 0.9% (FLUSH) 10 ML SYG IV PRN (12:51)
[2018-10-28] MEDS ORDERED: MAGNESIUM HYDROXIDE 30 ML UD PO PRN (12:51)
[2018-10-28] MEDS ORDERED: NITROGLYCERIN 0.4 MG 25 EA TAB SL PRN (12:51)
[2018-10-28] MEDS ORDERED: ONDANSETRON INJ 4 MG/2 ML VIAL IV PRN (12:51)
[2018-10-28] MEDS ORDERED: DEXTROSE 50% 25 GM/50 ML SYG IV PRN (12:51)
[2018-10-28] MEDS ORDERED: MORPHINE SULFATE INJ 10 MG/ML VIAL IV PRN (12:51)
[2018-10-28] MEDS ORDERED: ACETAMINOPHEN 325 MG TAB PO PRN (12:51)
[2018-10-28] MEDS ORDERED: ALPRAZolam 0.25 MG TAB PO ONE (14:11)
--- NOTE | 2018-10-28 15:00 | CT ---
PROVIDED CLINICAL HISTORY/REASON FOR EXAM: Elevated D-Dimer, SOB, Tachy r/o PE TECHNIQUE: Volumetric CT angiographic data acquisition of the thorax was obtained using the pulmonary embolism protocol after administration of IV contrast. Standard axial and coronal and CT angiographic MIP sagittal and coronal images are submitted. This exam was performed according to our departmental dose-optimization program, which includes automated exposure control, adjustment of the mA and/or kV according to patient size and/or use of iterative reconstruction technique. COMPARISON: 12/30/2007 FINDINGS: The thyroid gland is unremarkable. No axillary adenopathy. Normal caliber thoracic aorta. Coronary artery and aortic valvular calcifications. Mitral annular calcifications. No significant pericardial effusion. The visualized upper abdomen is grossly unremarkable. No mediastinal or hilar adenopathy. No pulmonary embolism. Moderate right and small left pleural effusions with adjacent atelectasis/consolidation. Diffuse interlobular septal thickening. No groundglass airspace disease or suspicious pulmonary nodule. No acute or suspicious osseous abnormality. Scattered degenerative changes present. IMPRESSION: 1. No pulmonary embolism. 2. CHF/volume overload with a moderate right and small left pleural effusion with adjacent atelectasis/consolidation. Electronically signed by: Tal Buchanan MD 10/28/2018 2:58 PM CDT
[2018-10-28] MEDS: APIXABAN 5 MG TAB PO SCH ×2 (16:00→19:54)
[2018-10-28] MEDS: INSULIN LISPRO 100 UNITS/ML PEN SUBCU SCH ×2 (16:50→21:06)
[2018-10-28] MEDS: IV SET AND CAP CHANGE INJ INJ SCH (16:52)
[2018-10-28] MEDS ORDERED: FUROSEMIDE INJ 20 MG/2 ML VIAL IV SCH (17:00)
[2018-10-28] MEDS ORDERED: METOPROLOL SUCCINATE XL 25 MG TAB PO ONE ×2 (18:06→18:15)
[2018-10-29] MEDS ORDERED: SODIUM CHLORIDE 0.9% 100ML 100 ML IVPB ONE (02:26)
[2018-10-29] MEDS ORDERED: diltiaZEM DRIP 125 MG/25 ML VIAL IVPB ONE (02:27)
[2018-10-29] MEDS: diltiaZEM DRIP 125 MG in SODIUM CHLORIDE 0.9% 100ML 100 ML IVPB SCH (02:34)
[2018-10-29] MEDS ORDERED: SODIUM CHLORIDE 0.9% 500ML 500 ML IVS ONE (06:57)
[2018-10-29] MEDS: INSULIN LISPRO 100 UNITS/ML PEN SUBCU SCH ×4 (07:30→20:40)
[2018-10-29] MEDS: APIXABAN 5 MG TAB PO SCH ×2 (08:48→20:33)
[2018-10-29] MEDS ORDERED: METOPROLOL SUCCINATE XL 50 MG TAB PO SCH (09:00)
--- NOTE | 2018-10-29 09:41 | PN ---
SUPERVISING PHYSICIAN: Olivia Germain MD DATE: 10/29/18 SUBJECTIVE: The patient is lying in bed. She has no complaints of shortness of breath, chest pain, nausea, vomiting, constipation. She does complain of some mild back pain, but she received Tylenol earlier today and that has resolved. OBJECTIVE: VITAL SIGNS: Temperature 97.6. Heart rate 69. Blood pressure 151/75. Respiratory rate 20. O2 saturation 93% on 3.5 liters nasal cannula. RESPIRATORY: Essentially clear to auscultation bilaterally. CARDIAC: Regular rate and rhythm. Occasionally, her rhythm is irregular. The traveling engineer shows that she goes back and forth between atrial fibrillation and sinus rhythm, but she does have a controlled rate. GASTROINTESTINAL: Abdomen is soft, nondistended, nontender. Bowel sounds are positive. NEUROLOGIC: Awake, alert and oriented times three. LABORATORY: WBCs 10,100, hemoglobin 11.3, hematocrit 34.8. Blood sugars have run between 129 and 284. Her electrolytes are basically within normal limits with the exception of her BUN high at 26. Chest x-ray is pending. Echocardiogram is pending. All other labs and films have been reviewed via the EMR. ASSESSMENT: 1. Atrial fibrillation with rapid ventricular response, unsure etiology, but the patient has a history of paroxysmal atrial fibrillation. She has previously been on Eliquis and a beta renata. The patient has been noncompliant with her medications due to her inability to obtain them for over 2 weeks. She was on a Cardizem drip. It was discontinued this morning and she is presently on a beta renata. 2. Elevated D-dimer, but negative CTA of the chest for pulmonary embolism, but with the patient having been noncompliant with her anticoagulation therapy with Eliquis for 2 weeks. 3. Pulmonary edema probably due to acute exacerbation of atrial fibrillation with rapid ventricular response with current echocardiogram showing a normal ventricular function and an ejection fraction of 60 to 65%. 4. History of anxiety on multiple anti-anxiety medications possibly exacerbating #1 due to mild panic attack. 5. Hypertension appears to be stable on beta blockers. 6. Type 2 diabetes mellitus on both oral and insulin therapy. 7. History of coronary atherosclerosis with previous coronary stent placement. 8. Chronic gastroesophageal reflux disease. 9. Iron-deficiency anemia. PLAN: We will continue present supportive care. We will monitor her heart rate and adjust her metoprolol as needed for rate control. The Cardizem drip was stopped earlier this morning. She also has been restarted on her Eliquis. We will await her results from her echocardiogram. I will contact Dr. Ruvalcaba, her carpenter packing, to see if he would like her to be discharged on a traveling engineer. At this point, she is no longer on any diuretics and we will most likely not send her home on any. She has a followup appointment with Dr. Ruvalcaba on 01/24/19. We will continue to monitor the patient closely and follow as needed. #[id number] [facility]
--- NOTE | 2018-10-29 10:03 | RAD ---
EXAM DESCRIPTION: Chest,1 View CLINICAL HISTORY: 67 years Female, chf / pulmonary edema COMPARISON: Previous study October 28, 2018 TECHNIQUE: AP portable chest. FINDINGS: Heart size is large with increased pulmonary vascularity consistent with volume overload or congestive failure. Pulmonary edema in the upper lobes appear slightly worsened compared to the previous study. No consolidating infiltrate to suggest pneumonia. No pulmonary mass or worrisome nodule. No pneumothorax or large pleural effusion. Degenerative changes in the left AC joint and left shoulder. IMPRESSION: Large heart with increased vascularity consistent with volume overload or congestive failure. Electronically signed by: Roberto Mcclelland MD 10/29/2018 10:01 AM CDT
[2018-10-29] MEDS: METOPROLOL TARTRATE 25 MG TAB PO SCH ×2 (17:37→23:37)
[2018-10-29] MEDS ORDERED: LISINOPRIL 10 MG TAB ONE (18:51)
[2018-10-29] MEDS ORDERED: DULoxetine HCL 30 MG CAP PO ONE (18:51)
[2018-10-29] MEDS ORDERED: busPIRone HCL 5 MG TAB ONE (18:52)
[2018-10-29] MEDS: NON-FORMULARY MEDICATION 1 EA MIS (Buspirone Hcl [Buspirone Hydrochloride] 7.5 MG) PO SCH (20:31)
[2018-10-29] MEDS: NON-FORMULARY MEDICATION 1 EA MIS (Duloxetine Hcl [Cymbalta] 60 MG) PO SCH (20:32)
[2018-10-29] MEDS: NON-FORMULARY MEDICATION 1 EA MIS (Lisinopril [Lisinopril] 20 MG) PO SCH (20:32)
[2018-10-29] MEDS: GABAPENTIN 300 MG CAP PO SCH (20:35)
[2018-10-30] MEDS ORDERED: busPIRone HCL 5 MG TAB ONE (07:05)
[2018-10-30] MEDS ORDERED: DULoxetine HCL 30 MG CAP PO ONE (07:05)
[2018-10-30] MEDS ORDERED: LISINOPRIL 10 MG TAB ONE (07:05)
[2018-10-30] MEDS: INSULIN LISPRO 100 UNITS/ML PEN SUBCU SCH ×4 (07:11→21:02)
[2018-10-30] MEDS: NON-FORMULARY MEDICATION 1 EA MIS (Buspirone Hcl [Buspirone Hydrochloride] 7.5 MG) PO SCH (08:11)
[2018-10-30] MEDS: NON-FORMULARY MEDICATION 1 EA MIS (Duloxetine Hcl [Cymbalta] 60 MG) PO SCH (08:12)
[2018-10-30] MEDS: NON-FORMULARY MEDICATION 1 EA MIS (Lisinopril [Lisinopril] 20 MG) PO SCH (08:13)
[2018-10-30] MEDS: APIXABAN 5 MG TAB PO SCH (08:13)
[2018-10-30] MEDS: GABAPENTIN 300 MG CAP PO SCH ×3 (08:14→20:30)
[2018-10-30] MEDS: METOPROLOL TARTRATE 50 MG TAB PO SCH ×2 (08:18→20:28)
--- NOTE | 2018-10-30 16:52 | PN ---
DATE: 10/30/18 SUPERVISING PHYSICIAN: Christian Germain M.D. SUBJECTIVE: The patient is lying in bed. She is awake. She has no complaints of nausea, vomiting, diarrhea, constipation or chest pain. She has had some shortness of breath overnight and required her oxygen to be increased to 4 liters nasal cannula. She has a CPAP but she feels it does not fit her and she feels very short of breath using it, so it has not been utilized in several years. I also discussed that due to her inability to afford her Eliquis that she had some samples of some Pradaxa and that we would switch her to the Pradaxa, and instructed her not to take Eliquis and that we were switching to Pradaxa. Nursing also reported that she was quite short of breath overnight. Her oxygen saturation dropped into the mid to upper 80s and they had to increase her oxygen to 4 liters. OBJECTIVE: VITAL SIGNS: Temperature 97.2, heart rate 57, blood pressure 147/67, respiratory rate 24, O2 sat 94%. It did drop to 86 to 87% last night and has had to be increased to 4 to 6 liters per minute via nasal cannula. RESPIRATORY: Diminished at the bases but otherwise clear to auscultation. She is tachypneic at times and has to speak in short phrases. CARDIAC: Regular rate and rhythm. At times she is very slightly bradycardic. GASTROINTESTINAL: Abdomen is soft, nondistended, non-tender. Bowel sounds are positive. NEUROLOGIC: She is awake, alert and oriented times three. LABORATORY: Blood sugars have run between 175 and 272. All other labs and films have been reviewed via the EMR. ASSESSMENT: 1. Atrial fibrillation with rapid ventricular response, unsure etiology, but the patient has a history of paroxysmal atrial fibrillation. She has previously been on Eliquis and a beta renata. The patient has been noncompliant with her medications due to her inability to obtain them for over 2 weeks. She was on a Cardizem drip. It was discontinued this morning and she is presently on a beta renata. 2. Elevated D-dimer, but negative CTA of the chest for pulmonary embolism, but with the patient having been noncompliant with her anticoagulation therapy with Eliquis for 2 weeks. 3. Pulmonary edema probably due to acute exacerbation of atrial fibrillation with rapid ventricular response with current echocardiogram showing a normal ventricular function and an ejection fraction of 60 to 65%. Her chest x- ray shows an increase in pulmonary edema and will give Lasix for diuresis. 4. History of anxiety on multiple anti-anxiety medications possibly exacerbating #1 due to mild panic attack. 5. Hypertension appears to be stable on beta blockers. 6. Type 2 diabetes mellitus on both oral and insulin therapy. 7. History of coronary atherosclerosis with previous coronary stent placement. 8. Chronic gastroesophageal reflux disease. 9. Iron-deficiency anemia. PLAN: We will continue present supportive care. I have ordered an ambulation study for home oxygen. After discharge she will need to followup with her primary care physician, Dr. Germain, and she will need a reevaluation and a refit of her CPAP. Her Eliquis has been discontinued and I have started Pradaxa 150 b.i.d., given her approximately 10 months of medications. I have also ordered physical therapy for safety on discharge as well as [employer] as the patient may be interested in home health from [facility]. I will give her one dose of Lasix today to see if we can help with the shortness of breath. I will restart her long acting insulin due to her elevated blood sugars, but will start at 40 units per night. Her glipizide is still on hold. Yesterday her heart rate went up to 120 bpm, so I discontinued her metoprolol succinate and changed her to 50mg of metoprolol tartrate bid, plus I gave her an additional 25mg of the tartrate. I will also do some lab and a chest x-ray in the morning. Hopefully she can be discharged home with [facility] with close followup with Dr. Germain. #[id number] [facility]
[2018-10-30] MEDS: FUROSEMIDE INJ 20 MG/2 ML VIAL IV SCH (17:58)
[2018-10-30] MEDS: busPIRone HCL 5 MG TAB PO SCH (20:29)
[2018-10-30] MEDS: DABIGATRAN ETEXILATE 75 MG CAP PO SCH (20:31)
[2018-10-30] MEDS: DULoxetine HCL 30 MG CAP PO SCH (20:32)
[2018-10-30] MEDS: LISINOPRIL 10 MG TAB PO SCH (20:32)
[2018-10-30] MEDS ORDERED: INSULIN DETEMIR 100 UNITS/ML PEN SUBCU SCH (21:00)
[2018-10-30] MEDS ORDERED: METOPROLOL TARTRATE 25 MG TAB PO ONE (21:26)
--- NOTE | 2018-10-31 06:54 | RAD ---
EXAM: XR Chest, 2 Views CLINICAL HISTORY: pulm edema TECHNIQUE: Frontal and lateral views of the chest. COMPARISON: 10/29/2018. FINDINGS: Limitations: None. Lungs: Stable bilateral basilar atelectasis. Pleural space: Unremarkable. No pneumothorax. Heart: Unremarkable. No cardiomegaly. Mediastinum: Unremarkable. Bones/joints: Unremarkable. Vasculature: Improved vascular congestion. IMPRESSION: Improved vascular congestion. Electronically signed by: Lenka Santos MD 10/31/2018 6:52 AM CDT
[2018-10-31] MEDS: INSULIN LISPRO 100 UNITS/ML PEN SUBCU SCH ×2 (07:09→12:30)
[2018-10-31] MEDS ORDERED: METOPROLOL TARTRATE 50 MG TAB PO SCH (09:00)
[2018-10-31] MEDS: DABIGATRAN ETEXILATE 75 MG CAP PO SCH (09:10)
[2018-10-31] MEDS: busPIRone HCL 5 MG TAB PO SCH (09:11)
[2018-10-31] MEDS: DULoxetine HCL 30 MG CAP PO SCH (09:12)
[2018-10-31] MEDS: GABAPENTIN 300 MG CAP PO SCH ×2 (09:12→16:09)
[2018-10-31] MEDS: LISINOPRIL 10 MG TAB PO SCH (09:13)
[2018-10-31] MEDS: FUROSEMIDE INJ 20 MG/2 ML VIAL IV SCH (09:14)
[2018-10-31] MEDS ORDERED: LEVALBUTEROL NEBS 1.25 MG/3 ML VIAL NEB ONE (11:47)
[2018-10-31] MEDS ORDERED: MAGNESIUM HYDROXIDE 30 ML UD PO ONE (12:14)
[2018-10-31] MEDS: IV SET AND CAP CHANGE INJ INJ SCH (13:16)
[2018-10-31 17:11] VITALS: TEMP 97.9; O2SAT 94
[2018-10-31 17:14] VITALS: BP 120/61
--- NOTE | 2018-11-03 09:13 | DS ---
SUPERVISING PHYSICIAN: Olivia Germain MD ADMISSION DIAGNOSIS: 1. Atrial fibrillation with rapid ventricular response, unsure etiology but the patient has a history of paroxysmal atrial fibrillation previously on Eliquis and a beta renata with the patient noncompliant with anticoagulation therapy due to inability to obtain medications for 2 weeks. 2. Elevated D-dimer but negative CTA of the chest for pulmonary embolism but with the patient having been noncompliant with her anticoagulation therapy with Eliquis for 2 weeks. 3. Pulmonary edema probably due to acute exacerbation of atrial fibrillation with rapid ventricular response with current echocardiogram showing a normal ventricular function and an ejection fraction of 60 to 65%. 4. History of anxiety on multiple anti-anxiety medications possibly exacerbating #1 due to mild panic attack. 5. Hypertension appears to be stable on beta blockers. 6. Type 2 diabetes mellitus on both oral and insulin therapy. 7. History of coronary atherosclerosis with previous coronary stent placement. 8. Chronic gastroesophageal reflux disease. 9. Iron-deficiency anemia. DISCHARGE DIAGNOSIS: 1. Atrial fibrillation initially with rapid ventricular response, requiring initiation of beta blockers and use of Cardizem drip during the hospitalization with the patient showing good response with the patient having a history of paroxysmal atrial fibrillation on Eliquis. 2. Elevated D-dimer with negative findings CTA of the chest for pulmonary embolism with the patient having been previously noncompliant with her anticoagulation therapy for 2 weeks, transitioned from Eliquis to Pradaxa due to financial reasons. 3. Pulmonary edema secondary to acute exacerbation of atrial fibrillation with rapid ventricular response with current echocardiogram during hospitalization showing normal ventricular function and an ejection fraction of 60 to 65% with chest x-ray showing good improvement and decreasing congestive vasculature. 4. History of severe anxiety with history of previously being on anti-anxiety medications with possible component of #1 being related to mild panic attacks. 5. Hypertension, stable on beta blockers. 6. Type 2 diabetes mellitus on both oral and insulin therapy, stable. 7. History of coronary atherosclerosis with previous coronary stent placement. 8. Chronic gastroesophageal reflux disease. 9. Iron-deficiency anemia. REASON FOR HOSPITALIZATION: Ms. Mills is a 67 year-old female patient who has a history of paroxysmal atrial fibrillation and has been on Eliquis. She presented to the E. R. today after she developed a sudden onset of shortness of breath around 3:00 this morning. She noted that she was sleeping and awoke with shortness of breath but denies any actual chest pains, nausea, vomiting or diaphoresis, but was having some palpitations. She has been on Eliquis for anticoagulation due to her atrial fibrillation but has been off of it for 2 weeks due to inability to obtain the medication. She was denying any lower extremity edema or pain. She was noting that she did have a mildly productive cough but was more white to yellow sputum. She has not had any recent illnesses or been around any ill contacts. She has not taken her medications this morning prior to the E. R. visit. She went to the clinic as soon as they opened to see Dr. Germain but on further evaluation found that the patient was hypoxic and tachycardia, and then was referred for further treatment and evaluation in the Emergency Department. Initially in the Emergency Department it was noted that she was tachycardic with vital signs showing a heart rate of 139 and EKG revealing atrial fibrillation with rapid ventricular response, satting 88% on room air. Blood pressure was elevated at 156/112. She was afebrile. Initial laboratory studies in the E. R. were fairly unremarkable except for an elevated BNP at 230. TSH was normal at 0.35 as well as magnesium at 1.8. She was given 25 mg of Cardizem which did result in better control of her ventricular rate. Her initial cardiac enzymes were showing to be with troponin 0.02. Given that she continued with a rapid heart rate, she was started on a Cardizem drip and is now going to be admitted to the hospital for further treatment and evaluation of atrial fibrillation with rapid ventricular response and pulmonary edema with concerns for congestive heart failure related to the elevated BNP. She was given 40 of Lasix in addition to the Cardizem. She was admitted in stable condition. LABORATORY: CBC on admission was within normal limits. At discharge, hemoglobin was10.8, hematocrit 32.6, differential without a left shift, white count 10,700. PT, PTT were within normal limits. D-dimer was elevated at 1.50, but CTA of the chest was negative for pulmonary embolism. Chemistries on admission showed normal electrolytes with BUN 28, creatinine 1.02. BNP was elevated at 230. She had two sets of troponins that were both within normal limits. TSH was normal at 0.35. Sodium at discharge was 133, potassium lymph node at 4.5. BUN 35, creatinine 1.0, magnesium slightly low at 1.7. Blood sugars were elevated, ranging between 129 and 284 with the patient being on insulin during hospitalization. RADIOLOGY: Chest x-ray in the Emergency Room initially per radiologic interpretation prior to admission showed single view chest with perihilar prominence and bibasilar opacities which may represent vascular congestion and peripheral edema. She had multiple chest x-rays. The last x-ray prior to discharge on 10/31/18, two view chest, per radiologic interpretation showed improved vascular congestion, stable bibasilar atelectasis with no consolidations. She did have an echocardiogram initially on admission that showed left ventricular ejection fraction estimated to be 60% to 65%. Please see that report for details. EKG showed initially, 12-lead, with rapid ventricular response initially in 130s, atrial fibrillation. After initiation of medication and prior to discharge, the patient was showing atrial fibrillation with a controlled ventricular rate. HOSPITAL COURSE: Ms. Mills was admitted initially for exacerbation of atrial fibrillation and rapid ventricular response. She required a Cardizem drip and was titrated off the Cardizem drip and eventually stated on beta renata with metoprolol extended release, but she was still showing some evidence of poor ventricular rate control and was then started on metoprolol tartrate 75 mg b.i.d. and was showing good response to treatment. She was hemodynamically stable and was restarted on anticoagulation initially with Eliquis, but was unable to afford that financially in the past and was then started on Pradaxa which she had a year's worth of samples provided by the clinic. She was found to be stable. She was requiring oxygen during ambulation studies showing desaturations and maintaining 94% on nasal cannula at 4 liters at rest and with ambulation. Prior to discharge, arrangements were made for home O2 via concentrator and portable as well as nebulizer treatment machine. It was found she had not had a bowel movement during the hospitalization and was given some Milk of Magnesia which was felt to possibly be related to her mild shortness of breath at times. She did have pulmonary function tests which showed her actual to be 36 and predicted on her function test, which did reveal some restrictive component with no obvious obstructed component. Please see that report for details. She was found to be stable on day of discharge to continue with outpatient management. PHYSICAL EXAMINATION AT DISCHARGE: VITAL SIGNS: Temperature 97.9. Pulse 54. Blood pressure 120/61. Respirations 22. Saturation 94% on nasal cannula at 4 liters at rest. GENERAL: The patient appeared to be resting comfortably without any acute distress. CHEST: Clear to auscultation, just slightly diminished towards the bases without any notable rales, rhonchi or wheezing. HEART: Slightly irregular rate and rhythm with controlled ventricular rate without appreciable murmurs, gallops, or rubs. ABDOMEN: Obese, but soft, nontender. Positive bowel sounds. EXTREMITIES: No cyanosis, clubbing or edema. NEUROLOGIC: Alert and oriented x3. PLAN: Ms. Mills was discharged to followup Dr. Germain the following week after discharge. She was to resume her home medications as instructed and return to the hospital for any concerning symptoms. She had home health arranged through [facility] as well as home oxygen through [facility]. Diet was to resume usual diet. Activity to be as tolerated and increase as tolerated. MEDICATIONS AT DISCHARGE: 1. Xopenex 1.25 mg nebulizer treatments q.8h. as needed for shortness of breath, #25, no refills. 2. Pradaxa 150 mg twice daily, samples provided prior to discharge. 3. Metoprolol tartrate 75 mg twice daily, #60, no refills. All other medications on discharge included: 1. Toujeo 80 units subcutaneously daily. 2. Nitrostat 0.4 mg as needed. 3. Glipizide 10 mg b.i.d. 4. Vitamin B12 injections monthly. 5. Gabapentin 600 mg daily. 6. Lisinopril 20 mg b.i.d. 7. Cymbalta 60 mg b.i.d. 8. Buspirone 7.5 mg b.i.d. DISPOSITION: The patient is discharged home. CONDITION ON DISCHARGE: Stable and improved. #[id number] [facility]
== END 2018-10-31 16:55 | disposition home or self-care (01) | DRG 308 ==
LOC: ER 10:17 → OBSVTOIN 11:55 → MS 11:55
PROVIDERS: ADMIT Nurse Practitioner Family; ATTEND Nurse Practitioner Family
DX: I48.91 Unspecified atrial fibrillation (principal); J81.0 Acute pulmonary edema; R09.02 Hypoxemia; R79.1 Abnormal coagulation profile; T45.526A Underdosing of antithrombotic drugs, initial encounter; F41.0 Panic disorder [episodic paroxysmal anxiety]; I10 Essential (primary) hypertension; E11.65 Type 2 diabetes mellitus with hyperglycemia; I25.10 Atherosclerotic heart disease of native coronary artery without angina pectoris; K21.9 Gastro-esophageal reflux disease without esophagitis; D50.9 Iron deficiency anemia, unspecified; L40.9 Psoriasis, unspecified; E66.9 Obesity, unspecified; Z91.120 Patient's intentional underdosing of medication regimen due to financial hardship; Y92.009 Unspecified place in unspecified non-institutional (private) residence as the place of occurrence of the external cause; Z79.4 Long term (current) use of insulin; Z95.5 Presence of coronary angioplasty implant and graft; Z79.82 Long term (current) use of aspirin; Z79.899 Other long term (current) drug therapy; Z86.73 Personal history of transient ischemic attack (TIA), and cerebral infarction without residual deficits; Z68.37 Body mass index [BMI] 37.0-37.9, adult

== ENCOUNTER → 2019-01-30 | Outpatient (CLI) | payer MEDICARE | LOC: NC 10:21 | PROVIDERS: ATTEND Family Medicine | DX: I48.91 Unspecified atrial fibrillation (principal); E11.9 Type 2 diabetes mellitus without complications; I10 Essential (primary) hypertension; I25.10 Atherosclerotic heart disease of native coronary artery without angina pectoris; D50.9 Iron deficiency anemia, unspecified; E78.5 Hyperlipidemia, unspecified ==

== ENCOUNTER → 2019-08-06 | Outpatient (CLI) | payer MEDICARE | LOC: NC 10:08 | PROVIDERS: ATTEND Family Medicine | DX: I10 Essential (primary) hypertension (principal); I48.20 Chronic atrial fibrillation, unspecified; E11.42 Type 2 diabetes mellitus with diabetic polyneuropathy ==

== ENCOUNTER 2019-10-27 16:06 | Inpatient (IN) | payer MEDICARE ==
[2019-10-27] MEDS ORDERED: IPRATROPIUM/ALBUTEROL 3 ML VIAL NEB ONE (16:21)
--- NOTE | 2019-10-27 16:26 | ED.PDOC ---
History of Present Illness - General Chief Complaint: Respiratory Problem Stated Complaint: shortness of breath Time Seen by Provider: 10/27/19 16:13 Source: patient Exam Limitations: no limitations - History of Present Illness Initial Comments: SOB STARTING ABOUT NOON TODAY. SATS 68% UPON ER PRESENTATION, IMPROVED TO 90% ON 4L NC. LIVES AT HOME WITH HUSB AND DAUGHTER. DENIES SICK KCONTACTS AT HOME. DENIES ASTHMA/COPD AND NO TOBACCO USE. HAS HOME O2 BUT NOT NEEDED FOR APPROX 3 MOS. PMH: AFIB (PRADAXA, METOPROLOL), CHF, DM. Timing/Duration: constant Severity: severe Activities at Onset: none Possible Cause: unknown cause Improving Factors: nothing Worsening Factors: movement Associated Symptoms: denies symptoms Respiratory Risk Factors: no cause identified Allergies/Adverse Reactions: Allergies NO KNOWN ALLERGY Allergy (Verified 02/16/17 10:48) Home Medications: Ambulatory Orders Duloxetine HCl [Cymbalta] 60 mg PO BID 06/20/15 Gabapentin 600 mg PO TID 06/20/15 Nitroglycerin [Nitrostat] 0.4 mg SL PRN PRN 06/20/15 Buspirone HCl [Buspirone Hydrochloride] 7.5 mg PO BID 10/28/18 Glipizide 10 mg PO BID 10/28/18 Insulin Glargine [Toujeo Solostar] 40 unit SC BID 10/28/18 Lisinopril 20 mg PO BID 10/28/18 Levalbuterol Nebs [Xopenex NEBS] 1.25 mg NEB Q8HR PRN #25 vial 10/31/18 Acetaminophen [Acetaminophen Extra Stren] 1 - 2 mg PO PRN 10/27/19 Amlodipine Besylate [Norvasc] 5 mg PO BID 10/27/19 Apixaban [Eliquis] 5 mg PO BID 10/27/19 Atorvastatin Calcium [Lipitor] 80 mg PO BEDTIME 10/27/19 Iron W/ B12-Vit C-FA-Ifc [Ferrotrin] 1 cap PO DAILY 10/27/19 Metoprolol Tartrate 100 mg PO BID 10/27/19 Review of Systems - Review of Systems Constitutional: Denies: chills, fever EENTM: Denies: ear pain, throat pain Respiratory: States: short of breath. Denies: cough, wheezing Cardiology: Denies: chest pain, palpitations Gastrointestinal/Abdominal: Denies: abdominal pain, nausea Genitourinary: States: no symptoms reported Musculoskeletal: States: no symptoms reported Skin: Denies: lesions, rash Neurological: Denies: numbness, paresthesia Endocrine: Denies: unexplained weight gain, unexplained weight loss Hematologic/Lymphatic: Denies: easy bleeding, easy bruising All other Systems: Reviewed and Negative Past Medical History (General) - Patient Medical History Hx Seizures: No Hx Stroke: Yes - x 2 Hx Asthma: No Hx of COPD: No Hx Cardiac Disorders: Yes - s/p stent Hx Congestive Heart Failure: No Hx Pacemaker: No Hx Hypertension: Yes Hx Diabetes: Yes Hx Gastroesophageal Reflux: Yes Hx MRSA: Yes - Leg 2007; Nose 2010 MRSA Source:: Wound - Vaccination History Hx Influenza Vaccination: No Hx Pneumococcal Vaccination: Yes - Social History Hx Tobacco Use: No Hx Alcohol Use: No Hx Substance Use: No Hx Physical Abuse: No Hx Emotional Abuse: No Family Medical History - Family History Mother Family History: No Known Living Status: Physical Exam - Physical Exam General Appearance: Alert, Other - MODERATE DISTRESS Eyes, Ears, Nose, Throat Exam: PERRL/EOMI, normal ENT inspection, TMs normal, pharynx normal Neck: full range of motion, supple, normal inspection Respiratory: lungs clear, normal breath sounds - NO C/R/W, BUT BREATHING APPEARS MILDLY LABORED. , no accessory muscle use Cardiovascular/Chest: normal peripheral pulses, regular rate, rhythm, no JVD, no murmur Peripheral Pulses: radial,right: 2+, radial,left: 2+, dorsalis pedis,right: 2+, dorsalis pedis,left: 2+, posterior tibialis,right: 2+, posterior tibialis,left: 2+ Gastrointestinal/Abdominal: normal bowel sounds, non tender, soft Rectal Exam: deferred Extremity: normal range of motion, non-tender, no pedal edema, no calf tenderness Neurologic: no motor/sensory deficits, alert, normal mood/affect, oriented x 3 Skin Exam: normal color, warm/dry Lymphatic: no adenopathy Progress - Results/Orders Results/Orders: DYSPNEA FROM RLL PNE AND CHF EXACERBATION - BEING ADMITTED INTO THE [facility]. THANK YOU, SUYAPA COLON AND THE [facility], FOR ACCEPTING FURTHER CARE OF OUR PATIENT. STARTED ROCEPHIN AND AZITHROMYCIN FOR COMMUNITY ACQUIRED PNE. GAVE LASIX 20 MG IV X 1 FOR CHF EXAC. HYPOXIA - 68% ON RA UPON ER PRESENTATION. 90% ON 4L NC. CARD ENZ - NEG. COVID - NEG. CXR = RLL PNE AND CHF WITH R PLEURAL EFFUSION. EKG - KNOWN AFIB WITH RVR. CBC - ELEV WBC AND NEUTS. CMP - NEG BNP - 1040 COAGS NEG. BCx PENDING. DDIMER NEG. LACTIC ACID NEG. - EKG/XRAY/CT EKG: Atrial, Fibrillation, RVR Departure - Departure Clinical Impression: Hypoxia, Pleural effusion, Chronic a-fib, Neutrophilic leukocytosis, Elevated brain natriuretic peptide (BNP) level, Tachypnea Dyspnea Qualifiers: Dyspnea type: shortness of breath Qualified Code(s): R06.02 - Shortness of breath; R06.00 - Dyspnea, unspecified; R06.01 - Orthopnea Right lower lobe pneumonia Qualifiers: Pneumonia type: due to unspecified organism Qualified Code(s): J18.9 - Pneumonia, unspecified organism Acute exacerbation of CHF (congestive heart failure) Qualifiers: Heart failure type: diastolic Qualified Code(s): I50.33 - Acute on chronic diastolic (congestive) heart failure Disposition: Admit Patient Condition: Fair Home Medications: Ambulatory Orders Duloxetine HCl [Cymbalta] 60 mg PO BID 06/20/15 Gabapentin 600 mg PO TID 06/20/15 Nitroglycerin [Nitrostat] 0.4 mg SL PRN PRN 06/20/15 Buspirone HCl [Buspirone Hydrochloride] 7.5 mg PO BID 10/28/18 Glipizide 10 mg PO BID 10/28/18 Insulin Glargine [Toujeo Solostar] 40 unit SC BID 10/28/18 Lisinopril 20 mg PO BID 10/28/18 Levalbuterol Nebs [Xopenex NEBS] 1.25 mg NEB Q8HR PRN #25 vial 10/31/18 Acetaminophen [Acetaminophen Extra Stren] 1 - 2 mg PO PRN 10/27/19 Amlodipine Besylate [Norvasc] 5 mg PO BID 10/27/19 Apixaban [Eliquis] 5 mg PO BID 10/27/19 Atorvastatin Calcium [Lipitor] 80 mg PO BEDTIME 10/27/19 Iron W/ B12-Vit C-FA-Ifc [Ferrotrin] 1 cap PO DAILY 10/27/19 Metoprolol Tartrate 100 mg PO BID 10/27/19 Decision To Admit - Decistion To Admit Decision to Admit Reason: Admit from ER Decision to Admit Date: 10/27/19 Decision to Admit Time: 20:38
--- NOTE | 2019-10-27 16:37 | RAD ---
EXAM DESCRIPTION: Chest,1 View CLINICAL HISTORY: DYSPNEA COMPARISON: October 31, 2018 Findings: Single AP portable upright view of the chest shows enlargement of the cardiac silhouette with increased pulmonary vascular congestion suggesting worsening congestive heart failure. Increased in its of the right hemidiaphragm is seen with increased interstitial alveolar infiltrate in the perihilar regions right greater than left.. Small amount of fluid in the right horizontal fissure. IMPRESSION: Findings suggest interval worsening of congestive heart failure. Small right pleural effusion is now seen. Worsening perihilar and lower lobe infiltrates right greater than left could represent sequela of congestive heart failure versus superimposed pneumonia or aspiration. Continued follow-up is recommended. Electronically signed by: Darvin Bajwa MD 10/27/2019 4:35 PM CDT
[2019-10-27] MEDS ORDERED: ALBUTEROL INHALER 64 PUFF/8GM INH ONE (16:51)
[2019-10-27] MEDS: SODIUM CHLORIDE 0.9% (FLUSH) 10 ML SYG IV PRN (17:13)
[2019-10-27] MEDS ORDERED: cefTRIAXone SODIUM 1 GM in SODIUM CHL 0.9% 50ML MIN-BAG+ 50 ML IVPB ONE (18:44)
[2019-10-27] MEDS ORDERED: AZITHROMYCIN IV 500 MG in SODIUM CHLORIDE 0.9% 250ML 250 ML IVPB ONE (18:44)
[2019-10-27] MEDS ORDERED: FUROSEMIDE INJ 20 MG/2 ML VIAL IV ONE (18:45)
--- NOTE | 2019-10-27 20:00 | HP ---
SUPERVISING PHYSICIAN: Olivia Germain MD CHIEF COMPLAINT: Increasing shortness of breath. HISTORY OF PRESENT ILLNESS: Ms. Mills is a 68-year-old female patient with a past medical history of atrial fibrillation on Eliquis and metoprolol along with congestive heart failure and diabetes. She presented to the ER today with severe hypoxia after she had developed some shortness of breath at home around noon. On presentation to the Emergency Room, she was actually saturating 68%. It improved up to 90% with 4 liters nasal cannula. She does have O2 at home, but endorses she has not needed to use it for over the 3 months. She denied any chest pains or palpitations. Chest x-ray showed findings suggestive of worsening congestive heart failure with a small right pleural effusion and a worsened perihilar and lower lobe infiltrate. Laboratory studies showed she had a leukocytosis of 15,900 with a left shift. Her initial chemistries on admission show normal lactic acid of 1.4. Carbon dioxide was low at 17, BUN elevated at 34, creatinine normal at 1.14, glucose 209. BNP was elevated at 1040, but troponin was 0.02. 12-lead EKG showed atrial fibrillation with no ST changes. She was given several breathing treatments in the ER and tested for upper respiratory infection, for COVID-19 and was found to be negative for all targets including bacterial and viral targets. X-ray indicated possible CHF exacerbation with some pulmonary edema versus worsening pneumonia. Therefore, is going to be started on treatment for congestive heart failure. She was given Lasix in the ER as well as initiated on antibiotics for coverage for questionable community acquired pneumonia, right lower lobe. The patient was admitted in stable condition. PAST MEDICAL HISTORY: 1. Paroxysmal atrial fibrillation on Eliquis and metoprolol, followed by Dr. Ruvalcaba. 2. Coronary artery disease with previous stent placement. 3. Type 2 diabetes mellitus, on both oral and insulin therapy. 4. Gastroesophageal reflux disease. 5. Hypertension. 6. Iron deficiency anemia. 7. Anxiety. 8. Psoriasis. PAST SURGICAL HISTORY: 1. Appendectomy. 2. Cholecystectomy. 3. Hysterectomy. 4. Coronary artery stent placement. HOME MEDICATIONS: 1. Nitroglycerin 0.4 mg sublingual p.r.n. 2. Metoprolol 100 mg b.i.d. 3. Lisinopril 20 mg b.i.d. 4. Xopenex nebulizers 1.25 mg q.8h. as needed. 5. Xopenex 1.25 mg inhaled daily. 6. Ferrotrin 1 capsule daily. 7. Toujeo 40 units subcutaneously b.i.d. 8. Glipizide 10 mg b.i.d. 9. Cymbalta 60 mg b.i.d. 10. Buspirone 7.5 mg b.i.d. 11. Lipitor 80 mg at bedtime. 12. Eliquis 5 mg b.i.d. 13. Norvasc 5 mg b.i.d. 14. Acetaminophen 1 to 2 p.o. q.4h. as needed. ALLERGIES: NO KNOWN DRUG ALLERGIES. FAMILY HISTORY: Father is due to suicide. Mother had a history of hypertension, myocardial infarction and renal failure. SOCIAL HISTORY: The patient is and lives in [place], [place]. 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 She has never smoked, does not use tobacco, alcohol or illicit drugs. REVIEW OF SYSTEMS: CONSTITUTIONAL: Negative for any fevers, chills or general malaise. HEENT: Negative for sore throats, earaches, nasal congestion, headaches, vision changes. RESPIRATORY: As noted in history of present illness, increasing shortness of breath. Denies coughing or wheezing. CARDIOVASCULAR: Negative for chest pain, palpitations or syncopal episodes. GASTROINTESTINAL: Negative for nausea, vomiting, diarrhea, constipation or abdominal pain. GENITOURINARY: Negative for dysuria, hematuria, polyuria. MUSCULOSKELETAL: Negative for joint swelling or arthralgias. SKIN: Negative for lesions, rashes or unexplained changes. NEUROLOGIC: Negative for no numbness, paresthesias, ataxia, seizures or other focal neurologic deficits. HEMATOLOGIC: Negative for easy bruising, unexplained bleeding or transfusion reactions. PHYSICAL EXAMINATION: VITAL SIGNS: On initial presentation to the ER, temperature was 96.6, heart rate 121, blood pressure 151/102, respirations 20 to 36, O2 saturation 66% on room air. With breathing treatments and high flow oxygen, oxygen saturation was 90% with a heart rate 64, blood pressure 119/82. GENERAL: The patient is showing some accessory respiratory muscle usage and appears to be in some mild distress, but once she is put on BiPAP, she seems to be comfortable. She is alert. HEENT: Tympanic membranes clear bilaterally. Oropharynx is pink, moist without any lesions. NECK: Supple, nontender with full range of motion. No jugular venous distention noted. RESPIRATORY: Lung sounds significantly diminished throughout with some obvious accessory muscle usage. No notable rhonchi, wheezes or rales. CARDIOVASCULAR: Regular rate and rhythm without any appreciable murmurs, gallops, or rubs. No JVD. ABDOMEN: Obese, soft, nontender. Positive bowel sounds. EXTREMITIES: There is no cyanosis, clubbing or edema. BACK: No CVA tenderness, no vertebral tenderness. NEUROLOGIC: Cranial nerves II-XII are grossly intact. Facial features are symmetrical. Extraocular movements are within normal limits. There is no nystagmus noted. The patient is alert and oriented times three. SKIN: Warm, pink and dry. LABORATORY: White count elevated at 13,900, hemoglobin 11.4, hematocrit 33.6, platelet count 233,000. Differential shows a left shift. Coagulation studies show normal PT, PTT with normal D-dimer. Chemistries on admission showed normal potassium, sodium and chloride with low carbon dioxide at 17. Normal anion gap. BUN elevated at 34, creatinine 1.14. Glucose 209. Lactic acid 1.4, magnesium 1.9, total bilirubin slightly elevated at 1.1 with AST, ALT noted to be within normal limits. CK-MB normal at 1.8 with troponin 0.02. BNP was elevated at 1040. Urinalysis showed 2+ bacteria with all other indices within normal limits. RADIOLOGY: Chest x-ray in the Emergency Room per radiologic interpretation shows findings suggestive of interval worsening congestive heart failure with small right pleural effusion, worsening perihilar and lower lobe infiltrates, right greater than left, could represent sequelae of congestive failure versus superimposed pneumonia or aspiration. 12-lead EKG shows atrial fibrillation which is chronic with no ST changes noted. Initial rate was 102 indicating rapid ventricular response. She has shown on bedside monitor exam controlled ventricular rate in the 90s. ASSESSMENT: 1. Community acquired pneumonia with severe hypoxia on admission in a patient previously O2 dependent. 2. Atrial fibrillation, chronic, with initial rapid ventricular response. The patient is on Eliquis and beta renata. 3. Questionable pulmonary edema with an acute exacerbation of atrial fibrillation with echocardiogram pending. Last echocardiogram from 2019 showed ejection fraction 60-65%. 4. Hypertension with diastolic failure. 5. Diabetes mellitus, type 2, on both oral and insulin. 6. History of atherosclerosis with previous coronary artery stent placements. 7. Chronic gastroesophageal reflux disease. 8. Iron deficiency anemia. PLAN: Ms. Mills is going to be admitted for treatment of underlying pneumonia in the right lower lobe with some concern for a congestive heart failure exacerbation. I have ordered echocardiogram in the morning. She was given Lasix in the Emergency Room. We will follow this up in the morning with 20 mg of Lasix. We will continue current plan of care, but if she is not showing improvement, certainly we will be more aggressive and increase her Lasix to 40 mg and probably have to place a Ruvalcaba at some point as I am guessing as short of breath that she looks at the time of admission. She is not hypertensive at this point. We will continue to monitor closely and resume her home medications as appropriate to her care. She will be on aggressive pulmonary hygiene with Xopenex breathing treatments. We will initiate pneumonia protocol along with coverage to include Rocephin and azithromycin. I anticipate her length of stay to be at least 2 to 3 days. Right now, she is on high flow O2 and her initial workup was negative for COVID-19 with the patient not noting any high risk exposures. Until the patient can transition to outpatient management, we will continue to monitor and treat as needed. #[id number] [facility]
[2019-10-27] MEDS ORDERED: SODIUM CHLORIDE 0.9% (FLUSH) 10 ML SYG IV PRN (21:02)
[2019-10-27] MEDS ORDERED: ONDANSETRON INJ 4 MG/2 ML VIAL IV PRN (21:02)
[2019-10-27] MEDS ORDERED: MAGNESIUM HYDROXIDE 30 ML UD PO PRN (21:02)
[2019-10-27] MEDS ORDERED: GLUCAGON INJ 1 MG VIAL SUBCU PRN (21:13)
[2019-10-27] MEDS ORDERED: DEXTROSE 50% 25 GM/50 ML SYG IV PRN (21:13)
[2019-10-27] MEDS ORDERED: NON-FORMULARY MEDICATION 1 EA MIS (Lisinopril [Lisinopril] 20 MG) PO SCH (21:15)
[2019-10-27] MEDS ORDERED: NON-FORMULARY MEDICATION 1 EA MIS (Duloxetine Hcl [Cymbalta] 60 MG) PO SCH (21:15)
[2019-10-27] MEDS ORDERED: NON-FORMULARY MEDICATION 1 EA MIS (Buspirone Hcl [Buspirone Hydrochloride] 7.5 MG) PO SCH (21:15)
[2019-10-27] MEDS ORDERED: NON-FORMULARY MEDICATION 1 EA MIS (Metoprolol Tartrate [Metoprolol Tartrate] 100 MG) PO SCH (21:15)
[2019-10-27] MEDS ORDERED: METOPROLOL TARTRATE 50 MG TAB ONE (21:27)
[2019-10-27] MEDS ORDERED: DULoxetine HCL 30 MG CAP PO ONE (21:27)
[2019-10-27] MEDS ORDERED: busPIRone HCL 5 MG TAB ONE (21:27)
[2019-10-27] MEDS ORDERED: LISINOPRIL 10 MG TAB ONE (21:28)
[2019-10-27] MEDS: GABAPENTIN 300 MG CAP PO SCH (21:30)
[2019-10-27] MEDS: amLODIPine BESYLATE 5 MG TAB PO SCH (21:30)
[2019-10-27] MEDS: APIXABAN 5 MG TAB PO SCH (21:30)
[2019-10-27] MEDS: IV SET AND CAP CHANGE INJ INJ SCH (21:31)
[2019-10-27] MEDS: ACETAMINOPHEN 325 MG TAB PO PRN (22:58)
[2019-10-27] MEDS: LEVALBUTEROL NEBS 1.25 MG/3 ML VIAL INH SCH (23:24)
[2019-10-28] MEDS: PANTOPRAZOLE SODIUM IV 40 MG VIAL IV SCH (05:48)
--- NOTE | 2019-10-28 07:09 | RAD ---
Exam(s): XR CHEST 2 VIEWS: 10/28/2019 7:00 AM CDT Indication: Pneumonia MAIN Comparison Study Date: 10/27/2019 Technique: 2 view chest radiograph. Findings: Multifocal lung opacities are present. Predominantly mid to lower lung involvement. There is more dense opacification in the right lower lobe. Compared with yesterday's exam, the right lower lobe opacity is increased. A small right effusion is suspected. Heart size is normal. Normal mediastinal contours. No bone abnormality is identified. IMPRESSION: Multifocal lung opacities, worse within the right lower lobe. This could represent combination of edema and/or pneumonia. There may be a component of right lower lobe atelectasis. Electronically signed by: Niels Pena MD 10/28/2019 7:07 AM CDT
[2019-10-28] MEDS: INSULIN LISPRO 100 UNITS/ML PEN SUBCU SCH ×5 (07:26→21:44)
[2019-10-28] MEDS: LEVALBUTEROL NEBS 1.25 MG/3 ML VIAL INH SCH ×2 (07:30→16:27)
[2019-10-28] MEDS ORDERED: DULoxetine HCL 30 MG CAP PO ONE (08:24)
[2019-10-28] MEDS ORDERED: busPIRone HCL 5 MG TAB ONE (08:24)
[2019-10-28] MEDS ORDERED: cefTRIAXone SODIUM 1 GM VIAL ONE (08:24)
[2019-10-28] MEDS ORDERED: METOPROLOL TARTRATE 50 MG TAB ONE ×2 (08:24→18:59)
[2019-10-28] MEDS ORDERED: amLODIPine BESYLATE 5 MG TAB ONE ×2 (08:24→18:58)
[2019-10-28] MEDS ORDERED: APIXABAN 5 MG TAB PO ONE (08:24)
[2019-10-28] MEDS ORDERED: LISINOPRIL 10 MG TAB ONE ×2 (08:25→18:59)
[2019-10-28] MEDS ORDERED: FUROSEMIDE INJ 20 MG/2 ML VIAL ONE (08:25)
[2019-10-28] MEDS ORDERED: SODIUM CHL 0.9% 50ML MIN-BAG+ 50 ML IVPB ONE (08:25)
[2019-10-28] MEDS ORDERED: GABAPENTIN 300 MG CAP ONE ×2 (08:25→18:59)
[2019-10-28] MEDS: cefTRIAXone SODIUM 1 GM in SODIUM CHL 0.9% 50ML MIN-BAG+ 50 ML IVPB SCH (09:32)
[2019-10-28] MEDS: LISINOPRIL 10 MG TAB PO SCH ×2 (09:33→20:09)
[2019-10-28] MEDS: busPIRone HCL 5 MG TAB PO SCH ×2 (09:33→20:09)
[2019-10-28] MEDS: APIXABAN 5 MG TAB PO SCH ×2 (09:33→20:09)
[2019-10-28] MEDS: DULoxetine HCL 30 MG CAP PO SCH ×2 (09:33→20:09)
[2019-10-28] MEDS: amLODIPine BESYLATE 5 MG TAB PO SCH ×2 (09:33→20:09)
[2019-10-28] MEDS: GABAPENTIN 300 MG CAP PO SCH ×3 (09:34→20:09)
[2019-10-28] MEDS: FUROSEMIDE INJ 20 MG/2 ML VIAL IV SCH ×2 (09:34→16:49)
[2019-10-28] MEDS: METOPROLOL TARTRATE 50 MG TAB PO SCH ×2 (09:34→20:09)
[2019-10-28] MEDS ORDERED: FUROSEMIDE INJ 40 MG/4 ML VIAL IV ONE (11:46)
[2019-10-28] MEDS ORDERED: LEVALBUTEROL NEBS 1.25 MG/3 ML VIAL NEB ONE (11:49)
[2019-10-28] MEDS: LEVALBUTEROL NEBS 1.25 MG/3 ML VIAL INH PRN (11:50)
[2019-10-28] MEDS ORDERED: FUROSEMIDE INJ 40 MG/4 ML VIAL ONE (11:52)
[2019-10-28] MEDS ORDERED: NITROGLYCERIN 0.4 MG/HR PATCH TOP SCH (12:00)
[2019-10-28] MEDS ORDERED: NITROGLYCERIN 0.4 MG/HR PATCH TOP ONE (12:41)
[2019-10-28] MEDS ORDERED: ATORVASTATIN 20 MG TAB PO ONE (18:59)
[2019-10-28] MEDS: AZITHROMYCIN IV 500 MG in SODIUM CHLORIDE 0.9% 250ML 250 ML IVPB SCH (19:14)
[2019-10-28] MEDS: ATORVASTATIN 20 MG TAB PO SCH (20:09)
[2019-10-28] MEDS: ACETAMINOPHEN 325 MG TAB PO PRN (20:11)
[2019-10-29] MEDS: LEVALBUTEROL NEBS 1.25 MG/3 ML VIAL INH SCH ×3 (00:05→16:30)
[2019-10-29] MEDS: PANTOPRAZOLE SODIUM IV 40 MG VIAL IV SCH (05:55)
--- NOTE | 2019-10-29 07:28 | RAD ---
Exam(s): XR CHEST 1 VIEW: 10/29/2019 7:00 AM CDT Indication: Pneumonia MAIN Comparison Study Date: 10/28/2019 Technique: AP chest radiograph. Findings: Multifocal airspace opacities are still present without significant change. There is likely complete atelectasis of the right lower lobe. No pleural effusion or pneumothorax. Heart size is normal. Normal mediastinal contours. IMPRESSION: Unchanged multifocal airspace opacities. There has likely been progressive atelectasis, now with complete atelectasis of the right lower lobe. Electronically signed by: Niels Pena MD 10/29/2019 7:26 AM CDT
[2019-10-29] MEDS: INSULIN LISPRO 100 UNITS/ML PEN SUBCU SCH ×4 (07:46→21:09)
--- NOTE | 2019-10-29 08:17 | PN ---
SUPERVISING PHYSICIAN: Olivia Germain MD DATE: 10/28/19 SUBJECTIVE: The patient is still showing some mild respiratory distress. She is having some abdominal breathing with some accessory movements noted. She does desaturate quite easily and her ABG did show significant hypoxemia on even high flow nasal cannula. Therefore, she has been placed on BiPAP and seems to be doing okay with this. She has no further complaints. No chest pains, no nausea, vomiting or diarrhea. OBJECTIVE: VITAL SIGNS: Temperature 97.5, pulse 70, blood pressure 172/76, respiratory rate 22, oxygen saturation 89% on nasal cannula at 7 liters. On BiPAP at 40%, saturation is 92%. GENERAL: The patient is a little labored in regards to her respiratory effort with some abdominal movements indicating use of accessory muscles. Once placed on BiPAP, she was in much less distress and saturations were improved. CHEST: Lung sounds are significantly decreased throughout all macario. No notable rhonchi or wheeze noted. HEART: Slightly irregular rate and rhythm. ABDOMEN: Obese, but soft and nontender. Positive bowel sounds. EXTREMITIES: No edema. NEUROLOGIC: Alert and oriented times three. LABORATORY: White count this morning 13,900, hemoglobin 11.4, hematocrit 33.6. Differential shows continued left shift. Blood gas analysis showed pH 7.38, pCO2 36, pO2 50, bicarb 21.3, saturation 84% on 7 liter nasal cannula high flow. Chemistry showed normal electrolytes, anion gap normal, carbon dioxide normal at 21. Creatinine 1.1. Blood sugars are fairly stable at 184 to 186. Magnesium normal last night at 1.9. Calcium 9.2. Ruvalcaba catheter this morning, urine sample showed 3 to 5 RBCs, 20 to 30 WBCs, 4+ amorphus material and rare bacteria. MICROBIOLOGY: Urine culture pending. Blood cultures negative at 24 hours. Again, her respiratory panel was negative for COVID. RADIOLOGY: Chest x-ray this morning per radiologic interpretation showed multifocal lung opacities, worse in the right lower lobe, could represent consolidation or combination of edema and/or pneumonia. Echocardiogram is pending. Verbal from [facility] showed 55-60% ejection fraction. Final report is pending. ASSESSMENT: 1. Community acquired pneumonia, right lower lobe, with severe hypoxia requiring BiPAP in a patient previously O2 dependent. 2. Chronic atrial fibrillation with initial rapid ventricular response, now showing a controlled rate on Eliquis and beta renata. 3. Heart failure, diastolic etiology, with some pulmonary edema noted on imaging studies with the patient having an elevated BNP with echocardiogram pending. Previous echocardiogram in 2019 showed ejection fraction 60-65%. 4. Urinary tract infection, cultures pending. 5. Hypertension with diastolic failure. 6. Diabetes mellitus, type 2, on both oral and insulin therapy, stable. 7. History of atherosclerosis with previous coronary artery stent placements. 8. Chronic gastroesophageal reflux disease. 9. Iron deficiency anemia. PLAN: The patient this morning was showing significant distress. Therefore, aggressive management is warranted as far putting the patient on BiPAP given she was significantly hypoxic with hypoxemia on ABG. She seems to be doing well on BiPAP. Given her x-rays, we cannot completely rule out underlying edema on top of pneumonia, I am going to go ahead and give her an extra dose of Lasix 40 mg in addition to the 20 mg scheduled b.i.d. I requested a Ruvalcaba catheter be placed as she is not able to get off BiPAP very long to utilize the commode and desaturates significantly. I anticipate that can be removed once she is more stable. She probably needs to have a CT done once she is a little bit more stable and can stay off BiPAP and does not significantly desaturate. I am not sure at this point if she would be able to tolerate laying flat in the CT scanner. In regards to the congestive heart failure, we are getting an echocardiogram. I am going to treat her fairly aggressively and put her on a nitro patch and follow with additional Lasix and watcher her I&Os. She remains on aggressive pulmonary hygiene with Xopenex breathing treatments scheduled and p.r.n. Her atrial fibrillation is controlled at this point. We will continue her home medications. She is on Eliquis for DVT prophylaxis as well as she is already on an CHRISTINA inhibitor and beta renata. Her antibiotic coverage continues with azithromycin and Rocephin. She does have a urine culture pending. We will continue to treat with antibiotics as necessary and address as cultures are available. I anticipate at least another 48 hours as she is right now dependent on BiPAP before she can discharge and transition to outpatient management. Until then, we will continue to monitor and treat as needed. #[id number] [facility]
[2019-10-29] MEDS: GABAPENTIN 300 MG CAP PO SCH ×3 (10:06→20:27)
[2019-10-29] MEDS: busPIRone HCL 5 MG TAB PO SCH ×2 (10:06→20:26)
[2019-10-29] MEDS: APIXABAN 5 MG TAB PO SCH ×2 (10:07→20:27)
[2019-10-29] MEDS: amLODIPine BESYLATE 5 MG TAB PO SCH ×2 (10:07→20:27)
[2019-10-29] MEDS: DULoxetine HCL 30 MG CAP PO SCH ×2 (10:07→20:27)
[2019-10-29] MEDS: LISINOPRIL 10 MG TAB PO SCH ×2 (10:07→20:27)
[2019-10-29] MEDS: METOPROLOL TARTRATE 50 MG TAB PO SCH ×2 (10:07→20:26)
[2019-10-29] MEDS: NITROGLYCERIN 0.4 MG/HR PATCH TOP SCH (10:08)
[2019-10-29] MEDS: cefTRIAXone SODIUM 1 GM in SODIUM CHL 0.9% 50ML MIN-BAG+ 50 ML IVPB SCH (10:08)
[2019-10-29] MEDS: FUROSEMIDE INJ 20 MG/2 ML VIAL IV SCH (10:15)
[2019-10-29] MEDS: ACETAMINOPHEN 325 MG TAB PO PRN (10:15)
[2019-10-29] MEDS: FUROSEMIDE INJ 40 MG/4 ML VIAL IV SCH ×2 (10:15→18:34)
[2019-10-29] MEDS ORDERED: FUROSEMIDE INJ 20 MG/2 ML VIAL ONE (11:03)
--- NOTE | 2019-10-29 15:29 | PN ---
SUPERVISING PHYSICIAN: Olivia Germain MD DATE: 10/29/19 SUBJECTIVE: The patient is lying in bed. She is much less short of breath today that she was yesterday. She does feel much improved. She denies chest pain, nausea or vomiting. OBJECTIVE: VITAL SIGNS: Temperature 98.9, heart rate 81, blood pressure 144/73, respiratory rate 20 to 24, O2 saturation 92% on high flow nasal cannula. She has been on BiPAP most of the night. RESPIRATORY: Diminished breath sounds throughout with a few scattered crackles and rhonchi scattered as well. She is tachypneic, especially with exertion or with speaking. She can only speak 2 to 3 word phrases without becoming short of breath. CARDIAC: Regular rate and rhythm. At times, she is slightly tachypneic. NEUROLOGIC: Awake, alert and oriented times three. LABORATORY: WBCs 12.1, hemoglobin 10.2, hematocrit 30. Electrolytes are basically within normal limits. Creatinine slightly elevated at 1.35. MICROBIOLOGY: Preliminary blood cultures show no growth after 24 hours. Urine culture is pending. RADIOLOGY: Chest x-ray shows unchanged multifocal airspace opacities. There has likely been progressive atelectasis, now with a complete atelectasis on the right lower lobe. All other labs and films have been reviewed via the EMR. ASSESSMENT: 1. Community acquired pneumonia, right lower lobe, with severe hypoxia requiring BiPAP in a patient previously O2 dependent. 2. Chronic atrial fibrillation with initial rapid ventricular response, now showing a controlled rate on Eliquis and beta renata. 3. Heart failure, diastolic etiology, with some pulmonary edema noted on imaging studies with the patient having an elevated BNP with echocardiogram pending. Previous echocardiogram in 2019 showed ejection fraction 60-65%. 4. Urinary tract infection, cultures pending. 5. Hypertension with diastolic failure. 6. Diabetes mellitus, type 2, on both oral and insulin therapy, stable. 7. History of atherosclerosis with previous coronary artery stent placements. 8. Chronic gastroesophageal reflux disease. 9. Iron deficiency anemia. PLAN: I have increased the patient's Lasix as well as ordered aggressive pulmonary hygiene including IPPB and percussion. If she can remain on nasal cannula, tomorrow I will get her CT scan ordered. She will continue on her present antibiotics. I will monitor her cultures. Hopefully, the CT scan will tell us more about her respiratory status. I will also need to find her echocardiogram as her echocardiogram about 1-1/2 years ago showed an ejection fraction of 60% and otherwise unremarkable. I have ordered labs and chest x-ray for in the morning. Follow and treat as needed. #[id number] [facility]
[2019-10-29] MEDS: AZITHROMYCIN IV 500 MG in SODIUM CHLORIDE 0.9% 250ML 250 ML IVPB SCH (19:30)
[2019-10-29] MEDS: ATORVASTATIN 20 MG TAB PO SCH (20:26)
[2019-10-29] MEDS: REMOVE OLD PATCH TOP SCH (20:38)
[2019-10-30] MEDS: LEVALBUTEROL NEBS 1.25 MG/3 ML VIAL INH SCH ×3 (00:05→16:43)
[2019-10-30] MEDS: PANTOPRAZOLE SODIUM IV 40 MG VIAL IV SCH (05:50)
--- NOTE | 2019-10-30 06:02 | RAD ---
CHEST, ONE VIEW XR CLINICAL HISTORY: Congestive heart failure. COMPARISON: 10/29/2019. TECHNIQUE: AP Chest. FINDINGS: Heart is normal in size. Patchy airspace densities throughout the right lung and to a lesser degree left lung are stable. No pneumothorax. No pleural fluid. Normal soft tissues. Significant thoracic spondylosis. IMPRESSION: 1. Diffuse bilateral pulmonary infiltrates and/or asymmetric edema persist without significant change. Electronically signed by: Emeli Seymour DO 10/30/2019 6:00 AM CDT
[2019-10-30] MEDS: INSULIN LISPRO 100 UNITS/ML PEN SUBCU SCH ×4 (07:35→21:28)
[2019-10-30] MEDS ORDERED: MAGNESIUM SULFATE PREMIX 2GM 2 GM in PREMIX BAG 1 BAG IVPB ONE (07:39)
[2019-10-30] MEDS ORDERED: POTASSIUM CHLORIDE ELIXIR 20 MEQ/15 ML UD PO ONE (07:39)
[2019-10-30] MEDS ORDERED: MAGNESIUM SULFATE PREMIX 2GM 50 ML IVPB ONE (08:29)
[2019-10-30] MEDS ORDERED: IPRATROPIUM/ALBUTEROL 3 ML VIAL NEB ONE (09:51)
--- NOTE | 2019-10-30 09:55 | CT ---
EXAM DESCRIPTION: Chest w/o Contrast CLINICAL HISTORY: 68 years, Female, sob COMPARISON: Chest x-ray October 30, 2019 and October 29, 2019, CTA chest October 28, 2018 TECHNIQUE: Thin-section noncontrast axial CT images are obtained according to our protocol. Reconstructed MPR images are created and reviewed as well. FINDINGS: Lungs: Extensive consolidating infiltrates noted bilaterally with perihilar predominance consistent with pneumonia, possibly aspiration. Density is greater than expected for pulmonary edema. Partial volume loss in the lower lobes anterior to the pleural effusions. No worrisome pulmonary mass or nodule. Bilateral pleural effusions, moderate on the right and small on the left. Mediastinum: Lymph nodes are normal in size. Normal vascular contours. Heart size is normal with no pericardial effusion. Extensive coronary arterial calcification. Chest wall/axilla: No mass or adenopathy. Lower neck/supraclavicular: No mass or adenopathy. Normal thyroid gland. Upper abdomen: Unremarkable upper abdominal viscera. Coronal and sagittal reformatted images confirm the findings. Sagittal images show prominent posterior discal abnormalities in the mid to lower T-spine narrowing the spinal canal. For possible compression effect on the cord, MRI would be needed. Prominent flowing osteophytes of DISH anteriorly. Sternum appears intact. No aortic aneurysm. Prominent pulmonary vascularity is obscured by the extensive pulmonary infiltrates. Patient had CTA of the chest October 28, 2018 which showed septal thickening and bilateral pleural effusions. The pulmonary infiltrates have worsened since the previous study especially in the upper lobes. IMPRESSION: Bilateral pleural effusions, right greater than left. Large heart with vascular congestion. Extensive bilateral pulmonary infiltrates, most consistent with pneumonia. This exam was performed according to our departmental dose-optimization program, which includes automated exposure control, adjustment of the mA and/or kV according to patient size and/or use of iterative reconstruction technique. Total DLP equals 923.19 mGycm. Electronically signed by: Roberto Mcclelland MD 10/30/2019 9:54 AM CDT
[2019-10-30] MEDS ORDERED: HALOPERIDOL LACTATE INJ 5 MG/ML VIAL ONE (10:32)
[2019-10-30] MEDS ORDERED: HALOPERIDOL LACTATE INJ 5 MG/ML VIAL IM PRN (10:42)
[2019-10-30] MEDS: DULoxetine HCL 30 MG CAP PO SCH ×2 (10:45→20:27)
[2019-10-30] MEDS: busPIRone HCL 5 MG TAB PO SCH ×2 (10:45→20:28)
[2019-10-30] MEDS: FUROSEMIDE INJ 40 MG/4 ML VIAL IV SCH (10:46)
[2019-10-30] MEDS: GABAPENTIN 300 MG CAP PO SCH ×3 (10:46→20:27)
[2019-10-30] MEDS: APIXABAN 5 MG TAB PO SCH ×2 (10:46→20:27)
[2019-10-30] MEDS: guaiFENesin ER TAB 600 MG TAB PO SCH ×2 (10:46→20:27)
[2019-10-30] MEDS: amLODIPine BESYLATE 5 MG TAB PO SCH ×2 (10:47→20:28)
[2019-10-30] MEDS: NITROGLYCERIN 0.4 MG/HR PATCH TOP SCH (10:47)
[2019-10-30] MEDS: LISINOPRIL 10 MG TAB PO SCH ×2 (10:47→20:27)
[2019-10-30] MEDS: METOPROLOL TARTRATE 50 MG TAB PO SCH ×2 (10:47→20:27)
[2019-10-30] MEDS ORDERED: POTASSIUM CHLORIDE 20 MEQ TAB ONE (11:01)
[2019-10-30] MEDS ORDERED: VANCOMYCIN PER PHARMACY IVPB SCH (11:30)
[2019-10-30] MEDS: CEFEPIME 2 GM in SODIUM CHL 0.9% 100ML MINI-BAG 100 ML IVPB SCH ×2 (13:00→23:10)
[2019-10-30] MEDS: VANCOMYCIN HCL INJ 1,000 MG, VANCOMYCIN HCL INJ 500 MG in SODIUM CHLORIDE 0.9% 250ML 25... IVPB SCH (14:10)
[2019-10-30] MEDS ORDERED: POTASSIUM CHLORIDE 20 MEQ TAB PO ONE (17:00)
[2019-10-30] MEDS: ACETAMINOPHEN 325 MG TAB PO PRN (18:05)
[2019-10-30] MEDS: cefTRIAXone SODIUM 1 GM in SODIUM CHL 0.9% 50ML MIN-BAG+ 50 ML IVPB SCH (19:02)
[2019-10-30] MEDS: ATORVASTATIN 20 MG TAB PO SCH (20:29)
[2019-10-30] MEDS: REMOVE OLD PATCH TOP SCH (20:38)
[2019-10-30] MEDS: IV SET AND CAP CHANGE INJ INJ SCH (21:55)
[2019-10-31] MEDS: LEVALBUTEROL NEBS 1.25 MG/3 ML VIAL INH SCH ×4 (00:15→16:48)
[2019-10-31] MEDS: PANTOPRAZOLE SODIUM IV 40 MG VIAL IV SCH (06:35)
[2019-10-31] MEDS: GABAPENTIN 300 MG CAP PO SCH ×3 (08:00→20:29)
[2019-10-31] MEDS: APIXABAN 5 MG TAB PO SCH ×2 (08:00→20:29)
[2019-10-31] MEDS: guaiFENesin ER TAB 600 MG TAB PO SCH ×2 (08:00→20:29)
[2019-10-31] MEDS: busPIRone HCL 5 MG TAB PO SCH ×2 (08:01→20:30)
[2019-10-31] MEDS: METOPROLOL TARTRATE 50 MG TAB PO SCH ×2 (08:01→20:29)
[2019-10-31] MEDS: DULoxetine HCL 30 MG CAP PO SCH ×2 (08:01→20:29)
[2019-10-31] MEDS: INSULIN LISPRO 100 UNITS/ML PEN SUBCU SCH ×5 (08:02→21:31)
[2019-10-31] MEDS: NITROGLYCERIN 0.4 MG/HR PATCH TOP SCH (08:04)
[2019-10-31] MEDS: FUROSEMIDE INJ 40 MG/4 ML VIAL IV SCH (08:04)
[2019-10-31] MEDS: LISINOPRIL 10 MG TAB PO SCH ×2 (08:18→20:29)
--- NOTE | 2019-10-31 08:59 | PN ---
SUPERVISING PHYSICIAN: Christian Germain M.D. DATE: 10/30/19 SUBJECTIVE: The patient is lying in bed. It has been reported that she has been very confused and agitated. She has had to have some Haldol and Ativan. She is able to go to her CT scan today and he oxygenation is better, but she is very confused today. OBJECTIVE: VITAL SIGNS: Temperature is 98, heart rate 112, blood pressure 132/64, respiratory rate 22, O2 saturation 92% on 10 liters high flow nasal cannula. RESPIRATORY: Diminished breath sounds throughout with a few scattered crackles. CARDIAC: Regular rate and rhythm. At times she is tachycardic. Her heart rate has run between 90 and 110s. NEUROLOGIC: She is agitated. She does stop to answer a few simple yes/no questions. She is oriented to person and place. LABORATORY: WBCs have slightly improved to 11.9 with a hemoglobin of 10.1 and hematocrit of 30. Sodium 135, potassium 3.2, chloride 103, carbon dioxide 21, BUN 40, creatinine 1.24, magnesium 1.2. Total bilirubin 1.1. Preliminary blood cultures show no growth after 3 days. Urine culture shows an insignificant amount of jacy. RADIOLOGY: Chest x-ray shows diffuse bilateral pulmonary infiltrates and/or symmetrical edema persistent without significant change. Chest CT shows bilateral pleural effusions, right greater than left. Large heart with vascular congestion. Extensive bilateral pulmonary infiltrates most consistent with pneumonia. Echocardiogram shows an ejection fraction of 55 to 60% with mild diastolic dysfunction. All other labs and films have been reviewed via the EMR. ASSESSMENT: 1. Community acquired pneumonia, right lower lobe, with severe hypoxia requiring BiPAP in a patient previously O2 dependent. 2. Chronic atrial fibrillation with initial rapid ventricular response, now showing a controlled rate on Eliquis and beta renata. 3. Heart failure, diastolic etiology, with some pulmonary edema noted on imaging studies with the patient having an elevated BNP with echocardiogram pending. Previous echocardiogram in 2019 showed ejection fraction 60-65%. 4. Urinary tract infection, cultures pending. 5. Hypertension with diastolic failure. 6. Diabetes mellitus, type 2, on both oral and insulin therapy, stable. 7. History of atherosclerosis with previous coronary artery stent placements. 8. Chronic gastroesophageal reflux disease. 9. Iron deficiency anemia. PLAN: We will continue present supportive care. I have given her potassium and magnesium supplementation. I have also added DuoNeb treatments and percussion. I discussed her case with her primary care physician, Dr. Germain. Because of her poor clinical progress I have discontinued her azithromycin and Rocephin, and I have started her on Cefepime and vancomycin. I will repeat her labs for in the morning. We will hold on a chest x-ray and watch her clinically. Will continue to monitor closely and follow as needed. #[id number] [facility]
[2019-10-31] MEDS: SODIUM CHLORIDE 0.9% (FLUSH) 10 ML SYG IV PRN (11:42)
[2019-10-31] MEDS: CEFEPIME 2 GM in SODIUM CHL 0.9% 100ML MINI-BAG 100 ML IVPB SCH ×2 (11:42→23:23)
[2019-10-31] MEDS: VANCOMYCIN HCL INJ 1,000 MG, VANCOMYCIN HCL INJ 500 MG in SODIUM CHLORIDE 0.9% 250ML 25... IVPB SCH (12:45)
[2019-10-31] MEDS: amLODIPine BESYLATE 5 MG TAB PO SCH ×2 (13:45→20:29)
[2019-10-31] MEDS ORDERED: INSULIN DETEMIR 100 UNITS/ML PEN SUBCU ONE (13:49)
[2019-10-31] MEDS: INSULIN DETEMIR 100 UNITS/ML PEN SUBCU SCH (13:54)
--- NOTE | 2019-10-31 16:09 | PN ---
SUPERVISING PHYSICIAN: Christian Germain M.D. DATE: 10/31/19 SUBJECTIVE: The patient seems to be doing much better today. She is sitting in the bedside chair. Does not seem to be confused. Feels like her breathing has improved. She remains afebrile. OBJECTIVE: VITAL SIGNS: Temperature 97.3, pulse 106, blood pressure 100/62, respirations 20, satting 99% on BiPAP at 55%, 94% on nasal cannula at 10 liters. GENERAL: The patient is resting comfortably. She is alert. Does not appear to be confused. Not showing to have any respiratory distress at time of exam. RESPIRATORY: Breath sounds are much improved from previous days, just a little diminished towards the bases. I do not hear any crackles or rales today. HEART: Regular rate and rhythm. ABDOMEN: Soft, non-tender. Positive bowel sounds. NEUROLOGIC: She is alert and oriented times three. Answers questions appropriately. Interacts. Speaking in full complete sentences. LABORATORY: White count has now normalized at 7,600, hemoglobin 9.9, hematocrit 29.5. Differential shows no left shift today. Chemistries show normal electrolytes, creatinine 1.3 which is up a little bit from yesterday, BUN at 47. Blood sugars do remain elevated between 222 and 323. Magnesium and calcium were both showing to be normal. MICROBIOLOGY: Urine culture final results showed an insignificant colony count and mixed jacy. Blood cultures are showing to be negative at 3 days. RADIOLOGY: No additional radiographic studies today. ASSESSMENT: 1. Community acquired pneumonia, right lower lobe, with severe hypoxia requiring BiPAP in a patient previously O2 dependent. 2. Chronic atrial fibrillation with initial rapid ventricular response, now showing a controlled rate on Eliquis and beta renata. 3. Heart failure, diastolic etiology, with some pulmonary edema noted on imaging studies with the patient having an elevated BNP with echocardiogram pending. Previous echocardiogram in 2019 showed ejection fraction 60-65%. 4. Urinary tract infection showing normal jacy on final cultures. 5. Hypertension with diastolic failure. 6. Diabetes mellitus, type 2, showing continued poorly controlled elevated blood sugars. 7. History of atherosclerosis with previous coronary artery stent placements. 8. Chronic gastroesophageal reflux disease. 9. Iron deficiency anemia. PLAN: Will continue with current plan of care at this point as we change her antibiotics to Cefepime and Vancomycin. She seems to be doing well on this. She is on aggressive pulmonary hygiene. She has diuresed off quite a bit over the last 48 hours showing to be close to 3 liters negative balance at this point, although her weight is showing to be up at 80.26 kg. Will go ahead and discontinue the Lasix in the morning with plans of removing the Ruvalcaba. She may need to be on some oral Lasix but I think if she continues to show improvement and can titrate off of her oxygen down to less than 4 liters nasal cannula and maintain O2 saturations at that point, she could go home but I will anticipate this to be her case at least for another 48 hours. Again, until we can transition her to outpatient management will continue to monitor and treat as needed. [facility][id number] [facility]
[2019-10-31] MEDS: ATORVASTATIN 20 MG TAB PO SCH (20:30)
[2019-10-31] MEDS: REMOVE OLD PATCH TOP SCH (20:38)
[2019-11-01] MEDS: PANTOPRAZOLE SODIUM IV 40 MG VIAL IV SCH (06:08)
[2019-11-01] MEDS: INSULIN LISPRO 100 UNITS/ML PEN SUBCU SCH ×7 (07:29→21:18)
[2019-11-01] MEDS: LEVALBUTEROL NEBS 1.25 MG/3 ML VIAL INH SCH ×2 (08:36→16:38)
[2019-11-01] MEDS: GABAPENTIN 300 MG CAP PO SCH ×3 (09:33→20:15)
[2019-11-01] MEDS: LISINOPRIL 10 MG TAB PO SCH ×2 (09:33→20:13)
[2019-11-01] MEDS: guaiFENesin ER TAB 600 MG TAB PO SCH ×2 (09:36→20:17)
[2019-11-01] MEDS: amLODIPine BESYLATE 5 MG TAB PO SCH ×2 (09:36→20:14)
[2019-11-01] MEDS: busPIRone HCL 5 MG TAB PO SCH ×2 (09:36→20:14)
[2019-11-01] MEDS: DULoxetine HCL 30 MG CAP PO SCH ×2 (09:36→20:16)
[2019-11-01] MEDS: APIXABAN 5 MG TAB PO SCH ×2 (09:36→20:16)
[2019-11-01] MEDS: INSULIN DETEMIR 100 UNITS/ML PEN SUBCU SCH ×2 (09:37→21:17)
[2019-11-01] MEDS ORDERED: methylPREDNISolone SODIUM SUC 40 MG/ML VIAL ONE ×3 (09:40→19:17)
[2019-11-01] MEDS ORDERED: glipiZIDE 5 MG TAB ONE ×2 (09:41→19:17)
[2019-11-01] MEDS: METOPROLOL TARTRATE 50 MG TAB PO SCH ×2 (09:53→20:15)
[2019-11-01] MEDS: NON-FORMULARY MEDICATION 1 EA MIS (Glipizide [Glipizide] 10 MG) PO SCH ×2 (09:53→20:16)
--- NOTE | 2019-11-01 10:17 | RAD ---
EXAM: Chest,1 View CLINICAL INDICATION: Pneumonia, hypoxia COMPARISON: 10/30/2019 FINDINGS: A single view of the chest was obtained. The heart size is normal. The pulmonary vascularity is unremarkable. Bilateral pulmonary infiltrates in the right upper lobe, and bilateral lung bases are unchanged from the previous study. There is no pneumothorax or pleural effusion. IMPRESSION: Stable bilateral pulmonary infiltrates compared to 10/30/2019, consistent with pneumonia. Electronically signed by: Benny Dukes MD 11/01/2019 10:15 AM CDT
[2019-11-01] MEDS: BUDESONIDE NEBS 0.5 MG/2 ML INH NEB SCH ×2 (10:30→20:55)
[2019-11-01] MEDS: methylPREDNISolone SODIUM SUC 40 MG/ML VIAL IV SCH ×3 (11:30→23:17)
[2019-11-01] MEDS: CEFEPIME 2 GM in SODIUM CHL 0.9% 100ML MINI-BAG 100 ML IVPB SCH ×2 (11:30→23:16)
[2019-11-01] MEDS: NITROGLYCERIN 0.4 MG/HR PATCH TOP SCH (11:30)
[2019-11-01] MEDS ORDERED: INSULIN LISPRO 100 UNITS/ML PEN SUBCU ONE (11:38)
[2019-11-01] MEDS: VANCOMYCIN HCL INJ 1,000 MG, VANCOMYCIN HCL INJ 500 MG in SODIUM CHLORIDE 0.9% 250ML 25... IVPB SCH (12:40)
--- NOTE | 2019-11-01 14:37 | PN ---
SUPERVISING PHYSICIAN: Christian Germain M.D. DATE: 11/01/19 SUBJECTIVE: The patient seems to be doing a little bit better overnight, but this morning nurses called me and she desaturates initially with any ambulatory effort down into the low 70s. It took her a while to get back up to just 92%. She is maintaining that on about 10 liters high flow nasal cannula. I did discuss with her that we are going to try to hold off on any steroids, but at this point I think we are going to add steroids to her regimen, therefore we are going to change her treatment to include Pulmicort and IV steroids as well as will get more aggressive with her blood sugars which have been ranging in the high 200s and 300s even without steroids. She does remain afebrile. I again encouraged her that she needs to utilize her BiPAP as much as possible to help recruit some lung tissue. Chest x-ray essentially is unchanged other than just desatting very quickly and taking a while to get back to 92. She seems to be fairly stable. OBJECTIVE: VITAL SIGNS: Temperature 98, pulse 64, blood pressure 137/65, respirations 24 at times with any exertional effort, while resting she is maintaining 92% on high flow nasal cannula anywhere from 10 to 12 liters, again desaturates down in the low 80s with any ambulation. I's and O's do show she is on a negative balance at 390 with 1410 in, 1800 out, overall she is down about 2.5 to 3 liters. GENERAL: The patient again is sitting in the bedside chair. Does not appear to be in any significant distress. Shortness of breath is obvious with any effort to ambulate. RESPIRATORY: Chest sounds are diminished towards the bases. I do not hear any rhonchi or rales or crackles. There is very faint wheezing on expiratory phase compared to yesterday. HEART: Regular rate and rhythm. ABDOMEN: Soft, non-tender. Positive bowel sounds. NEUROLOGIC: She is alert and oriented times three. No obvious motor focal deficits. LABORATORY: Chemistry today shows stable electrolytes with creatinine of 1.33, blood sugars ranging between 201 up to 323. Osmolality is at 292, calcium 9.3. Total bilirubin is a little elevated at 1.1. AST is up to 54, ALT is 63. MICROBIOLOGY: Final urine culture report showed insignificant colony count of mixed jacy. RADIOLOGY: Repeat chest x-ray per radiology interpretation shows stable bilateral pulmonary infiltrates compared to 10/30/19 consistent with pneumonia. ASSESSMENT: 1. Community acquired pneumonia, right lower lobe, with severe hypoxia requiring BiPAP in a patient previously O2 dependent. 2. Chronic atrial fibrillation with initial rapid ventricular response, now showing a controlled rate on Eliquis and beta renata. 3. Heart failure, diastolic etiology, with some pulmonary edema noted on imaging studies with the patient having an elevated BNP with echocardiogram pending. Previous echocardiogram in 2019 showed ejection fraction 60-65%. 4. Urinary tract infection showing normal jacy on final cultures. 5. Hypertension with diastolic failure. 6. Diabetes mellitus, type 2, showing continued poorly controlled elevated blood sugars. 7. History of atherosclerosis with previous coronary artery stent placements. 8. Chronic gastroesophageal reflux disease. 9. Iron deficiency anemia. PLAN: Given the patient is not able to titrate her O2 down and is still showing episodes of desaturation, I am going to add to her plan of care steroids both Pulmicort and IV Solu-Medrol. Given that her blood sugars are already elevated, I am going to add Levemir. I will increase it to 40 b.i.d. as well as add additional glucose in the form of 8 units to her sliding scale. I have also started her back on her Glipizide. She is on DVT prophylaxis with Eliquis. Her heart rate has been fairly stable. Will continue antibiotics at this point with Cefepime and Vancomycin. Will again work with Respiratory for aggressive pulmonary hygiene and utilize BiPAP to see if we can recruit some lung tissue, especially on the right as much as possible when she is not eating. Again, with her slow clinical progress I anticipate at least another 48 hours. Certainly she will go home on oxygen. At this point she is still requiring well over 10 liters nasal cannula. Until we can transition her to outpatient management will continue to monitor and treat as needed. #[id number] [facility]
[2019-11-01] MEDS: ATORVASTATIN 20 MG TAB PO SCH (20:13)
[2019-11-01] MEDS: REMOVE OLD PATCH TOP SCH (20:17)
[2019-11-02] MEDS: PANTOPRAZOLE SODIUM IV 40 MG VIAL IV SCH (06:12)
[2019-11-02] MEDS: INSULIN LISPRO 100 UNITS/ML PEN SUBCU SCH ×7 (07:34→20:53)
[2019-11-02] MEDS ORDERED: BUDESONIDE NEBS 0.5 MG/2 ML INH NEB ONE (08:42)
[2019-11-02] MEDS: BUDESONIDE NEBS 0.5 MG/2 ML INH NEB SCH ×2 (08:54→19:35)
[2019-11-02] MEDS: LEVALBUTEROL NEBS 1.25 MG/3 ML VIAL INH SCH ×3 (08:54→16:04)
[2019-11-02] MEDS: INSULIN DETEMIR 100 UNITS/ML PEN SUBCU SCH ×2 (10:13→20:53)
[2019-11-02] MEDS: amLODIPine BESYLATE 5 MG TAB PO SCH ×2 (10:16→20:40)
[2019-11-02] MEDS: METOPROLOL TARTRATE 50 MG TAB PO SCH ×2 (10:16→20:41)
[2019-11-02] MEDS: busPIRone HCL 5 MG TAB PO SCH ×2 (10:16→20:41)
[2019-11-02] MEDS: APIXABAN 5 MG TAB PO SCH ×2 (10:16→20:40)
[2019-11-02] MEDS: LISINOPRIL 10 MG TAB PO SCH ×2 (10:17→20:41)
[2019-11-02] MEDS: GABAPENTIN 300 MG CAP PO SCH ×3 (10:17→20:40)
[2019-11-02] MEDS: DULoxetine HCL 30 MG CAP PO SCH ×2 (10:17→20:41)
[2019-11-02] MEDS: guaiFENesin ER TAB 600 MG TAB PO SCH ×2 (10:17→20:40)
[2019-11-02] MEDS: NITROGLYCERIN 0.4 MG/HR PATCH TOP SCH (10:17)
[2019-11-02] MEDS: NON-FORMULARY MEDICATION 1 EA MIS (Glipizide [Glipizide] 10 MG) PO SCH (10:22)
[2019-11-02] MEDS ORDERED: glipiZIDE 5 MG TAB ONE (10:22)
--- NOTE | 2019-11-02 10:45 | PN ---
SUPERVISING PHYSICIAN: Alejandro Ramirez M.D. DATE: 11/02/19 SUBJECTIVE: The patient states she feels like she is breathing a little bit better than she did yesterday. She does complain of some shortness of breath on exertion. States that she was getting dizzy when she got to the bedside commode, but this morning she didn't. OBJECTIVE: VITAL SIGNS: Blood pressure 144/79, heart rate 97, respiratory rate 20, temperature 97.3, oxygen saturation 96%. GENERAL: Ms. Mills is a 68 year-old female who is in no active distress currently. NEUROLOGIC: The patient is alert. LUNGS: Diminished with some basilar rhonchi, but otherwise I do not appreciate any wheezing. CARDIOVASCULAR: The patient has a regular rate and rhythm. Normal S1 and S2. ABDOMEN: Soft. Positive bowel sounds. EXTREMITIES: Lower extremities with no edema. 2+ pulses. Capillary refill less than 2 seconds. LABORATORY: Chemistry this morning showed sodium 135, potassium 4.5, chloride 104, CO2 is 19, BUN 51, creatinine 1.34, glucose 343, calcium 9.7. ASSESSMENT: 1. Acute hypercarbic and hypoxemic respiratory failure on and off of NIPPV. 2. Community acquired pneumonia in the right lower lobe. 3. Diastolic heart failure. 4. Chronic atrial fibrillation on Eliquis. 5. Hypertension. 6. Diabetes mellitus type 2 which is poorly controlled. 7. History of coronary artery disease with no evidence of acute ACS. 8. Gastroesophageal reflux disease. 9. Anemia. PLAN: The patient did get some IV steroids yesterday and appears to have improved from that, therefore I will place her on 20 mg of Solu-Medrol every 8 hours today. If she does well with that, will deescalate to p.o. Her blood sugars are out of control, but hopefully with improve a little bit on a lower dose of steroids. Will continue the Pulmicort and the pulmonary hygiene. I have instructed her that I would like her to get up at least 3 times a day, especially for meals to facilitate good lung expansion. Will continue the current antibiotics and monitor her cultures, however now the cultures have come back positive. I will repeat her chest x-ray tomorrow and labs as well. The patient still does have a Ruvalcaba catheter because she has been desaturating to the 70s when she gets up out of bed. As soon as she stops desaturating so low on exertion, we can discontinue the catheter. #[id number] [facility]
[2019-11-02] MEDS: CEFEPIME 2 GM in SODIUM CHL 0.9% 100ML MINI-BAG 100 ML IVPB SCH ×2 (12:06→23:25)
[2019-11-02] MEDS: VANCOMYCIN HCL INJ 1,000 MG, VANCOMYCIN HCL INJ 500 MG in SODIUM CHLORIDE 0.9% 250ML 25... IVPB SCH ×2 (12:43→13:13)
[2019-11-02] MEDS: methylPREDNISolone SODIUM SUC 40 MG/ML VIAL IV SCH ×2 (14:27→21:45)
[2019-11-02] MEDS: glipiZIDE 5 MG TAB PO SCH (16:51)
[2019-11-02] MEDS: LEVALBUTEROL NEBS 1.25 MG/3 ML VIAL INH PRN (19:35)
[2019-11-02] MEDS: REMOVE OLD PATCH TOP SCH (20:41)
[2019-11-02] MEDS: ATORVASTATIN 20 MG TAB PO SCH (20:41)
[2019-11-02] MEDS: IV SET AND CAP CHANGE INJ INJ SCH (21:46)
[2019-11-03] MEDS: LEVALBUTEROL NEBS 1.25 MG/3 ML VIAL INH SCH ×4 (00:15→16:50)
[2019-11-03] MEDS: methylPREDNISolone SODIUM SUC 40 MG/ML VIAL IV SCH ×3 (05:57→20:06)
[2019-11-03] MEDS: PANTOPRAZOLE SODIUM IV 40 MG VIAL IV SCH (05:57)
[2019-11-03] MEDS: VANCOMYCIN HCL INJ 1,000 MG, VANCOMYCIN HCL INJ 500 MG in SODIUM CHLORIDE 0.9% 250ML 25... IVPB SCH (05:58)
[2019-11-03] MEDS: glipiZIDE 5 MG TAB PO SCH ×2 (06:00→17:25)
[2019-11-03] MEDS ORDERED: LISINOPRIL 10 MG TAB ONE (08:02)
[2019-11-03] MEDS: INSULIN LISPRO 100 UNITS/ML PEN SUBCU SCH ×7 (08:10→20:45)
[2019-11-03] MEDS: BUDESONIDE NEBS 0.5 MG/2 ML INH NEB SCH ×2 (08:11→20:10)
--- NOTE | 2019-11-03 09:56 | RAD ---
EXAM DESCRIPTION: Chest,1 View: CR/DR/XR. CLINICAL HISTORY: 68 years Female CHF COMPARISON: October 31 single view portable chest x-ray TECHNIQUE: ONE VIEW PORTABLE. AP nontender 35 hours, upright position. FINDINGS: Decreasing infiltrate right upper lobe. Diffuse infiltrate remains. No cardiomegaly stable. Pulmonary vascularity not increased. No pleural effusion or pneumothorax. Lung volumes improved. IMPRESSION: Lung volumes improved, decreasing infiltrate right upper lobe. bilateral infiltrates remain. Cardiomegaly And pulmonary vascularity stable Electronically signed by: Niels Nicolas MD 11/03/2019 9:54 AM CDT
[2019-11-03] MEDS: INSULIN DETEMIR 100 UNITS/ML PEN SUBCU SCH ×2 (10:12→20:46)
[2019-11-03] MEDS: APIXABAN 5 MG TAB PO SCH ×2 (10:13→20:00)
[2019-11-03] MEDS: busPIRone HCL 5 MG TAB PO SCH ×2 (10:13→20:00)
[2019-11-03] MEDS: LISINOPRIL 10 MG TAB PO SCH ×2 (10:13→20:00)
[2019-11-03] MEDS: amLODIPine BESYLATE 5 MG TAB PO SCH ×2 (10:13→20:00)
[2019-11-03] MEDS: METOPROLOL TARTRATE 50 MG TAB PO SCH ×2 (10:14→20:00)
[2019-11-03] MEDS: NITROGLYCERIN 0.4 MG/HR PATCH TOP SCH (10:14)
[2019-11-03] MEDS: DULoxetine HCL 30 MG CAP PO SCH ×2 (10:14→20:00)
[2019-11-03] MEDS: GABAPENTIN 300 MG CAP PO SCH ×3 (10:14→20:00)
[2019-11-03] MEDS: guaiFENesin ER TAB 600 MG TAB PO SCH ×2 (10:14→20:00)
--- NOTE | 2019-11-03 11:16 | PN ---
SUPERVISING PHYSICIAN: Alejandro Ramirez M.D. DATE: 11/03/19 SUBJECTIVE: The patient states she feels better today. She is breathing okay, sitting up in a chair with no complaints of significant shortness of breath. OBJECTIVE: VITAL SIGNS: Blood pressure 152/84, heart rate 108, respiratory rate 18, temperature 98.0, oxygen saturation is around 94% on 10 liters currently. GENERAL: Ms. Mills is a 68-year-old female who is in no active distress. NEUROLOGIC: The patient is alert. LUNGS: Diminished, but otherwise no wheezes, rales or rhonchi. CARDIOVASCULAR: Regular rate and rhythm. Normal S1 and S2. ABDOMEN: Soft, obese. Positive bowel sounds. EXTREMITIES: Lower extremities with no edema. 2+ pulses. Capillary refill less than 2 seconds. LABORATORY: Labs show improvement in renal function with BUN 53, creatinine 1.14 compared with BUN 51 and creatinine 1.34. Glucoses seem to be a little bit better controlled. They are out of the 300s and into the 200s. She does have leukocytosis at 17,000 today, however, I suspect this is likely due to the steroids that she was started on on 11/01/19. RADIOLOGY: Chest x-ray is improved with better lung volumes, decreased infiltrate in right upper lobe. ASSESSMENT: 1. Acute hypercarbic and hypoxemic respiratory failure on and off of NIPPV. 2. Community acquired pneumonia in the right lower lobe. 3. Diastolic heart failure. 4. Chronic atrial fibrillation on Eliquis. 5. Hypertension. 6. Diabetes mellitus, type 2, poorly controlled. 7. Coronary artery disease with no evidence of acute coronary syndrome. 8. Gastroesophageal reflux disease. 9. Anemia. PLAN: The patient seems to be stepwise improving clinically although her oxygen saturations are still on the low side. She states that she sats in the 70s at home. I have told the nurses to decrease her oxygen to keep her saturations around the 88% scotty. We will wean oxygen. She ambulated in the gabriel and kept her saturations around 88% and at rest got up to about 90% and that was on 10 liters. She did that with Physical Therapy. Therefore, we will continue current care. I will reduce the steroids to q.12h. and continue to monitor cultures. Due to frequent desaturations, the patient still does have a Ruvalcaba catheter. #[id number] [facility]
[2019-11-03] MEDS: CEFEPIME 2 GM in SODIUM CHL 0.9% 100ML MINI-BAG 100 ML IVPB SCH ×2 (12:01→23:21)
[2019-11-03] MEDS: ATORVASTATIN 20 MG TAB PO SCH (20:01)
[2019-11-03] MEDS: REMOVE OLD PATCH TOP SCH (20:06)
[2019-11-04] MEDS: VANCOMYCIN HCL INJ 1,000 MG, VANCOMYCIN HCL INJ 500 MG in SODIUM CHLORIDE 0.9% 250ML 25... IVPB SCH (00:37)
[2019-11-04] MEDS ORDERED: PANTOPRAZOLE SODIUM IV 40 MG VIAL ONE (03:06)
[2019-11-04] MEDS: glipiZIDE 5 MG TAB PO SCH (06:07)
[2019-11-04] MEDS ORDERED: PANTOPRAZOLE SODIUM TAB 40 MG PO SCH (06:30)
[2019-11-04] MEDS: LISINOPRIL 10 MG TAB PO SCH (07:58)
[2019-11-04] MEDS: methylPREDNISolone SODIUM SUC 40 MG/ML VIAL IV SCH (07:58)
[2019-11-04] MEDS: busPIRone HCL 5 MG TAB PO SCH (08:00)
[2019-11-04] MEDS: METOPROLOL TARTRATE 50 MG TAB PO SCH (08:00)
[2019-11-04] MEDS: APIXABAN 5 MG TAB PO SCH (08:00)
[2019-11-04] MEDS: guaiFENesin ER TAB 600 MG TAB PO SCH (08:01)
[2019-11-04] MEDS: NITROGLYCERIN 0.4 MG/HR PATCH TOP SCH (08:01)
[2019-11-04] MEDS: GABAPENTIN 300 MG CAP PO SCH (08:01)
[2019-11-04] MEDS: amLODIPine BESYLATE 5 MG TAB PO SCH (08:01)
[2019-11-04] MEDS: DULoxetine HCL 30 MG CAP PO SCH (08:01)
[2019-11-04] MEDS: INSULIN LISPRO 100 UNITS/ML PEN SUBCU SCH ×4 (08:03→11:59)
[2019-11-04] MEDS: INSULIN DETEMIR 100 UNITS/ML PEN SUBCU SCH (08:15)
[2019-11-04] MEDS ORDERED: BUDESONIDE NEBS 0.5 MG/2 ML INH NEB ONE (09:12)
[2019-11-04] MEDS ORDERED: LEVALBUTEROL NEBS 1.25 MG/3 ML VIAL NEB ONE (09:12)
[2019-11-04] MEDS: BUDESONIDE NEBS 0.5 MG/2 ML INH NEB SCH (09:30)
[2019-11-04] MEDS: LEVALBUTEROL NEBS 1.25 MG/3 ML VIAL INH SCH (09:30)
[2019-11-04 11:15] VITALS: O2SAT 96
[2019-11-04] MEDS: CEFEPIME 2 GM in SODIUM CHL 0.9% 100ML MINI-BAG 100 ML IVPB SCH (11:58)
[2019-11-04] MEDS ORDERED: VANCOMYCIN HCL INJ 1,000 MG, VANCOMYCIN HCL INJ 250 MG in SODIUM CHLORIDE 0.9% 250ML 25... IVPB SCH (12:00)
[2019-11-04 15:04] VITALS: BP 170/89; TEMP 98.1
--- NOTE | 2019-11-05 08:57 | DS ---
SUPERVISING PHYSICIAN: Alejandro Ramirez MD ADMISSION DIAGNOSIS: 1. Community acquired pneumonia with severe hypoxia on admission in a patient previously O2 dependent. 2. Atrial fibrillation, chronic, with initial rapid ventricular response. The patient is on Eliquis and beta renata. 3. Questionable pulmonary edema with an acute exacerbation of atrial fibrillation with echocardiogram pending. Last echocardiogram from 2019 showed ejection fraction 60-65%. 4. Hypertension with diastolic failure. 5. Diabetes mellitus, type 2, on both oral and insulin. 6. History of atherosclerosis with previous coronary artery stent placements. 7. Chronic gastroesophageal reflux disease. 8. Iron deficiency anemia. DISCHARGE DIAGNOSIS: 1. Acute hypercarbic and hypoxemic respiratory failure on and off of NIPPV. 2. Community acquired pneumonia in the right lower lobe. 3. Diastolic heart failure. 4. Chronic atrial fibrillation on Eliquis. 5. Hypertension. 6. Diabetes mellitus, type 2, poorly controlled. 7. Coronary artery disease with no evidence of acute coronary syndrome. 8. Gastroesophageal reflux disease. 9. Anemia. REASON FOR ADMISSION: Ms. Mills is a 68-year-old female patient with a past medical history of atrial fibrillation on Eliquis and metoprolol along with congestive heart failure and diabetes. She presented to the ER today with severe hypoxia after she had developed some shortness of breath at home around noon. On presentation to the Emergency Room, she was actually saturating 68%. It improved up to 90% with 4 liters nasal cannula. She does have O2 at home, but endorses she has not needed to use it for over the 3 months. She denied any chest pains or palpitations. Chest x-ray showed findings suggestive of worsening congestive heart failure with a small right pleural effusion and a worsened perihilar and lower lobe infiltrate. Laboratory studies showed she had a leukocytosis of 15,900 with a left shift. Her initial chemistries on admission show normal lactic acid of 1.4. Carbon dioxide was low at 17, BUN elevated at 34, creatinine normal at 1.14, glucose 209. BNP was elevated at 1040, but troponin was 0.02. 12-lead EKG showed atrial fibrillation with no ST changes. She was given several breathing treatments in the ER and tested for upper respiratory infection, for COVID-19 and was found to be negative for all targets including bacterial and viral targets. X-ray indicated possible CHF exacerbation with some pulmonary edema versus worsening pneumonia. Therefore, is going to be started on treatment for congestive heart failure. She was given Lasix in the ER as well as initiated on antibiotics for coverage for questionable community acquired pneumonia, right lower lobe. The patient was admitted in stable condition. LABORATORY: White count 17,400, but she had been on steroids since admission. Hemoglobin and hematocrit were stable at 10.1 and 30.7, respectively. Platelet count 398,000. Differential showed a left shift. Coagulation studies showed normal PT, PTT and D-dimer. Blood gas analysis initially on admission showed pO2 50 on 7 liters nasal cannula with pH 7.38, bicarb 21, pCO2 36. Chemistries showed normal electrolytes. Creatinine was at 1.09. Blood sugars were better controlled prior to discharge between 152 and 173. Magnesium normal at 2.1, calcium normal at 10.2. C-reactive protein 3.3. Urinalysis showed a small amount of leukocyte esterase, 3 to 5 RBCs, 20 to 30 WBCs, 4+ amorphus, rare bacteria. Her last vancomycin trough was 20.6. MICROBIOLOGY: Final urine culture results showed insignificant colony with mixed jacy. Blood cultures showed negative growth at 5 days. Respiratory panel showed viral and bacterial targets were not detected. See those reports for details. RADIOLOGY: She had a CT of the chest with multiple chest x-rays. CT of the chest per radiologic interpretation showed bilateral pleural effusions, right greater than left, enlarged heart with vascular congestion, extensive bilateral pulmonary infiltrates, most consistent with pneumonia. Final chest x-ray on 11/03/19 per radiologic interpretation showed lung volumes improved, decreasing infiltrate right upper lobe, bilateral infiltrates remaining. Cardiomegaly and pulmonary vascular stable. Please see those reports for details. 12-lead EKG on admission showed atrial fibrillation with initial rapid ventricular response, no ST or T-wave changes. Rate 102. HOSPITAL COURSE: Ms. Mills was admitted for treatment of mild congestive heart failure versus severe bilateral pneumonia. She initially showed saturations of 66% on admission to the ER. During hospitalization, she had aggressive pulmonary hygiene. She was on Xopenex treatments. She initially was treated with azithromycin and Rocephin, but was not showing good progress. Therefore, she was transitioned to cefepime and vancomycin and showed some improvement. She was started on Pulmicort as well as Solu-Medrol and did show slow improvement, but was improving daily although saturations were still into the 80s at times. She was ambulating actually with oxygen without any signs of distress and no signs of compromise respiratory-rich. She was maintaining her O2 saturations on about 5 liters up to 96% at rest, around 88% with ambulation. She was showing to be stable and it was felt she could continue with outpatient management. Therefore, she was discharged to followup with Dr. Germain. PLAN: Ms. Mills was discharged on 11/04/19 with instructions to followup with Dr. Germain who will call her on discharge to set up appointment for Saturday. I did discuss again with Dr. Germain the fact that she would benefit from a sleep study and he is going to set her up for a pulmonology consultation as well. Medications started on discharge included Medrol Dosepak 6-day taper, continued antibiotics for 6 days with cefdinir 300 mg twice daily and doxycycline 100 mg twice daily. I also started her on Symbicort 160-4.5 2 puffs twice daily. All other medications prior to hospitalization were continued as previously including Eliquis and nebulizer treatments with Xopenex. Again, she will need referral for a sleep study. She was sent home with oxygen, nebulizer treatments and home health through [facility]. She is to resume her diet that includes a diabetic diet as tolerated and watch her blood sugars closely. She is to increase her activity as tolerated and to maintain her oxygenation with home O2 to keep her O2 saturations at least 88% or better. She was given warnings that should she have any concerning symptoms or any return of low saturations or respiratory compromise, she is to call her home health nurse or return to the ER for further evaluation. MEDICATIONS PRESCRIBED ON DISCHARGE: 1. Medrol Dosepak 4 mg for 6 days, #21, no refills. 2. Cefdinir 300 mg twice daily, #12, no refills. 3. Symbicort 160-4.5 2 puffs b.i.d. 4. Doxycycline 100 mg twice daily for 6 days. CONDITION ON DISCHARGE: Stable and improved. DISPOSITION: The patient is discharged home with home health through [facility]. #[id number] [facility]
== END 2019-11-04 14:10 | disposition home health service (06) | DRG 291 ==
LOC: ER 16:06 → OBSVTOIN 20:00 → MS 20:00
PROVIDERS: ADMIT Nurse Practitioner Family; ATTEND Nurse Practitioner Family
DX: I11.0 Hypertensive heart disease with heart failure (principal); J18.9 Pneumonia, unspecified organism; J96.01 Acute respiratory failure with hypoxia; I48.20 Chronic atrial fibrillation, unspecified; J96.02 Acute respiratory failure with hypercapnia; N39.0 Urinary tract infection, site not specified; I50.33 Acute on chronic diastolic (congestive) heart failure; E11.9 Type 2 diabetes mellitus without complications; I25.10 Atherosclerotic heart disease of native coronary artery without angina pectoris; K21.9 Gastro-esophageal reflux disease without esophagitis; D50.9 Iron deficiency anemia, unspecified; F41.9 Anxiety disorder, unspecified; Z79.01 Long term (current) use of anticoagulants; Z79.4 Long term (current) use of insulin; Z95.5 Presence of coronary angioplasty implant and graft; Z79.899 Other long term (current) drug therapy; Z86.73 Personal history of transient ischemic attack (TIA), and cerebral infarction without residual deficits

== ENCOUNTER → 2019-11-06 | Outpatient (CLI) | payer MEDICARE | LOC: GMAE 13:29 | PROVIDERS: ATTEND Family Medicine | DX: J96.02 Acute respiratory failure with hypercapnia (principal) ==

== ENCOUNTER → 2020-03-16 | Outpatient (CLI) | payer MEDICARE | LOC: NC 09:35 | PROVIDERS: ATTEND Family Medicine | DX: E11.42 Type 2 diabetes mellitus with diabetic polyneuropathy (principal); E78.5 Hyperlipidemia, unspecified ==